=== PATIENT | female | born 1990 | race Caucasian/White ===

== ENCOUNTER 2018-09-27 12:52 | Emergency (ER) | payer SELFPAY ==
--- NOTE | 2018-09-27 14:23 | RAD REPORT ---
EXAM DESCRIPTION: RAD - Chest Pa And Lat (2 Views) - 09/27/2018 2:18 pm CLINICAL HISTORY: Sore throat, fever, chills, cough COMPARISON: None. TECHNIQUE: PA and lateral views of the chest were obtained. FINDINGS: The lungs are clear. Heart size is normal and central vasculature is within normal limit s. No pleural effusion or pneumothorax seen. No acute bony finding noted. No aortic abnormality. IMPRESSION: No acute cardiopulmonary process.
--- NOTE | 2018-09-27 15:00 | EDPHYS ---
Physician Documentation [facility] Name: Quin De La Torre Age: 28 yrs Sex: Female : 1990 Arrival Date: 09/27/2018 Time: 12:54 Bed 11 Private MD: ED Physician Choco Taylor HPI: 09/27 16:01 This 28 yrs old Female presents to ER via Ambulatory with complaints of kb Cough, Fever, Sore Throat. 16:01 The patient presents with sore throat. The patient describes throat pain as constant. kb Onset: The symptoms/episode began/occurred 2 day(s) ago. Severity of symptoms: At their worst the symptoms were moderate, in the emergency department the symptoms are unchanged. Modifying factors: The symptoms are alleviated by nothing, the symptoms are aggravated by swallowing. Associated signs and symptoms: Pertinent positives: chills, cough, fever, Sore throat. The patient has not experienced similar symptoms in the past. The patient has not recently seen a physician. Historical: - Allergies: 13:22 No Known Allergies; tw2 - Home Meds: 13:22 None [Active]; tw2 - PMHx: 13:22 None; tw2 - PSHx: 13:22 None; tw2 - Immunization history:: Adult Immunizations unknown. - Social history:: Smoking status: Patient/guardian denies using tobacco. - Ebola Screening: : Patient denies exposure to infectious person Patient denies travel to an Ebola-affected area in the 21 days before illness onset. ROS: 16:01 Neck: Negative for injury, pain, and swelling, Cardiovascular: Negative for chest pain, kb palpitations, and edema, Abdomen/GI: Negative for abdominal pain, nausea, vomiting, diarrhea, and constipation, Back: Negative for injury and pain, MS/Extremity: Negative for injury and deformity, Skin: Negative for injury, rash, and discoloration, Neuro: Negative for headache, weakness, numbness, tingling, and seizure. 16:01 Constitutional: Positive for chills, fever, malaise. 16:01 ENT: Positive for sore throat. 16:01 Respiratory: Positive for cough, Negative for dyspnea on exertion, hemoptysis, orthopnea, pleurisy, shortness of breath, sputum production, wheezing. Exam: 16:03 Constitutional: This is a well developed, well nourished patient who is awake, alert, kb and in no acute distress. Head/Face: Normocephalic, atraumatic. ENT: Nares patent. No nasal discharge, no septal abnormalities noted. Tympanic membranes are normal and external auditory canals are clear. Oropharynx with no redness, swelling, or masses, exudates, or evidence of obstruction, uvula midline. Mucous membranes moist. Neck: Trachea midline, no thyromegaly or masses palpated, and no cervical lymphadenopathy. Supple, full range of motion without nuchal rigidity, or vertebral point tenderness. No Meningismus. Chest/axilla: Normal chest wall appearance and motion. Nontender with no deformity. No lesions are appreciated. Cardiovascular: Regular rate and rhythm with a normal S1 and S2. No gallops, murmurs, or rubs. Normal PMI, no JVD. No pulse deficits. Respiratory: Lungs have equal breath sounds bilaterally, clear to auscultation and percussion. No rales, rhonchi or wheezes noted. No increased work of breathing, no retractions or nasal flaring. Abdomen/GI: Soft, non-tender, with normal bowel sounds. No distension or tympany. No guarding or rebound. No evidence of tenderness throughout. Skin: Warm, dry with normal turgor. Normal color with no rashes, no lesions, and no evidence of cellulitis. MS/ Extremity: Pulses equal, no cyanosis. Neurovascular intact. Full, normal range of motion. Neuro: Awake and alert, GCS 15, oriented to person, place, time, and situation. Cranial nerves II-XII grossly intact. Motor strength 5/5 in all extremities. Sensory grossly intact. Cerebellar exam normal. Normal gait. Vital Signs: 13:22 BP 123 / 90; Pulse 75; Resp 14; Temp 98.1(TE); Pulse Ox 99% on R/A; Weight 89.81 kg tw2 (M); Height 5 ft. 8 in. (172.72 cm); Pain 0/10; 13:22 Body Mass Index 30.11 (89.81 kg, 172.72 cm) tw2 MDM: 13:25 Patient medically screened. kb 16:03 Data reviewed: vital signs, nurses notes. Data interpreted: Pulse oximetry: on room air kb is 99 %. Interpretation: normal. Counseling: I had a detailed discussion with the patient and/or guardian regarding: the historical points, exam findings, and any diagnostic results supporting the discharge/admit diagnosis, lab results, the need for outpatient follow up, a family practitioner, to return to the emergency department if symptoms worsen or persist or if there are any questions or concerns that arise at home. 09/27 13:23 Order name: Strep; Complete Time: 13:44 tw2 09/27 13:43 Order name: Throat Culture [facility] 09/27 13:54 Order name: Flu; Complete Time: 14:35 kb 09/27 13:54 Order name: Chest Pa And Lat (2 Views) XRAY; Complete Time: 14:35 kb Administered Medications: No medications were administered Disposition: 09/28 09:14 Co-signature as Attending Physician, Choco Taylor MD I agree with the assessment and kdr plan of care. Disposition: 09/27/18 15:00 Discharged to Home. Impression: Acute upper respiratory infection, unspecified. - Condition is Stable. - Discharge Instructions: Upper Respiratory Infection, Adult, [id number], Viral Respiratory Infection, [id number]-[id number]. - Medication Reconciliation Form, Thank You Letter, Antibiotic Education, Prescription Opioid Use, Work release form form. - Follow up: Emergency Department; When: As needed; Reason: Worsening of condition. Follow up: Private Physician; When: 2 - 3 days; Reason: Recheck today's complaints, Continuance of care, Re-evaluation by your physician. Signatures: Dispatcher [employer] [facility] Whitney Stevenson, TURF MANAGER-C TURF MANAGER-Oliverb Choco Taylor MD MD kdr Smirch, Shelby, RN RN ss Wise, Tara, RN RN tw2 Corrections: (The following items were deleted from the chart) 09/27 15:08 15:00 09/27/2018 15:00 Discharged to Home. Impression: Acute upper respiratory ss infection, unspecified. Condition is Stable. Forms are Work release form, Medication Reconciliation Form, Thank You Letter, Antibiotic Education, Prescription Opioid Use. Follow up: Emergency Department; When: As needed; Reason: Worsening of condition. Follow up: Private Physician; When: 2 - 3 days; Reason: Recheck today's complaints, Continuance of care, Re-evaluation by your physician. kb
--- NOTE | 2018-09-27 15:00 | ER ---
Nurse's Notes [facility] Name: Quin De La Torre Age: 28 yrs Sex: Female : 1990 Arrival Date: 09/27/2018 Time: 12:54 Bed 11 Private MD: Diagnosis: Acute upper respiratory infection, unspecified Presentation: 09/27 13:20 Presenting complaint: Patient states: sore throat, fever and chills that began 2-3 days tw2 ago. Transition of care: patient was not received from another setting of care. Onset of symptoms was September 24, 2018. Risk Assessment: Do you want to hurt yourself or someone else? Patient reports no desire to harm self or others. Initial Sepsis Screen: Does the patient meet any 2 criteria? No. Patient's initial sepsis screen is negative. Does the patient have a suspected source of infection? No. Patient's initial sepsis screen is negative. Care prior to arrival: None. 13:20 Method Of Arrival: Ambulatory tw2 13:20 Acuity: DORI 4 tw2 Triage Assessment: 13:23 General: Appears in no apparent distress. Behavior is calm, cooperative, appropriate tw2 for age. Pain: Complains of pain in sore throat. EENT: Throat is reddened. Historical: - Allergies: 13:22 No Known Allergies; tw2 - Home Meds: 13:22 None [Active]; tw2 - PMHx: 13:22 None; tw2 - PSHx: 13:22 None; tw2 - Immunization history:: Adult Immunizations unknown. - Social history:: Smoking status: Patient/guardian denies using tobacco. - Ebola Screening: : Patient denies exposure to infectious person Patient denies travel to an Ebola-affected area in the 21 days before illness onset. Screenin:35 Abuse screen: Denies threats or abuse. Denies injuries from another. Nutritional ss screening: No deficits noted. Tuberculosis screening: Never had TB. Fall Risk None identified. Assessment: 13:34 General: Appears in no apparent distress. comfortable, Behavior is calm, cooperative, ss Reports chills for 2-3 days, fever for 2-3 days, feeling ill for 2-3 days, fatigue for 2-3 days. Pain: Denies pain. Neuro: Level of Consciousness is awake, alert, obeys commands. Cardiovascular: Capillary refill < 3 seconds is brisk in bilateral fingers. Respiratory: Airway is patent Respiratory effort is even, unlabored, Respiratory pattern is regular, symmetrical, Breath sounds are clear bilaterally. GI: No signs and/or symptoms were reported involving the gastrointestinal system. : Denies burning with urination, urinary frequency. EENT: Nares are clear Oral mucosa is moist. Throat is clear is reddened. EENT: Reports pain when swallowing. Derm: Skin is intact, is healthy with good turgor, Skin is dry, Skin is pink, warm \T\ dry. normal. Musculoskeletal: Circulation, motion, and sensation intact. Range of motion: intact in all extremities, Swelling absent. Vital Signs: 13:22 BP 123 / 90; Pulse 75; Resp 14; Temp 98.1(TE); Pulse Ox 99% on R/A; Weight 89.81 kg tw2 (M); Height 5 ft. 8 in. (172.72 cm); Pain 0/10; 13:22 Body Mass Index 30.11 (89.81 kg, 172.72 cm) tw2 ED Course: 12:54 Patient arrived in ED. rg4 13:21 Triage completed. tw2 13:22 Arm band placed on right wrist. tw2 13:25 Whitney [facility]C [facility] kb 13:25 Choco Taylor MD is Attending Physician. kb 13:27 Strep Sent. ss 13:34 Ary Robles, TAJ is Primary Nurse. ss 13:35 Patient has correct armband on for positive identification. Bed in low position. Call ss light in reach. 14:06 Flu Sent. ss 14:16 X-ray completed. Patient tolerated procedure well. sw 14:18 Chest Pa And Lat (2 Views) XRAY In Process Unspecified. EDMS 15:04 No provider procedures requiring assistance completed. Patient did not have IV access ss during this emergency room visit. Administered Medications: No medications were administered Outcome: 15:00 Discharge ordered by . kb 15:04 Discharged to home ambulatory. ss 15:04 Condition: good 15:04 Discharge instructions given to patient, Instructed on discharge instructions, follow up and referral plans. medication usage, Demonstrated understanding of instructions, follow-up care, medications. 15:08 Patient left the ED. ss Signatures: Dispatcher [employer] EDMS Whitney Stevenson FNP-C [employer]-C[employer] Ary Robles, RN RN ss John, Brittny Rodriguez, RN RN tw2 Aye Nicole4
== END 2018-09-27 15:08 | disposition home or self-care (01) ==
LOC: ER 12:52
DX: J06.9 Acute upper respiratory infection, unspecified (principal)
CPT/HCPCS: 71046; 87070; 87081; 87804; 99283

== ENCOUNTER 2021-05-11 19:28 | Emergency (ER) | payer OTHER ==
--- OUTSIDE RECORDS SUMMARY | 2021-05-11 19:32 | XMS REPORT | Continuity of Care Document ---
:1990 Author Organization [facility] t Address [address] [place] [address] [address]. [address]. [address] [place] [address] Care Team Providers Name Role Phone PCP, DOES NOT HAVE A Primary Care Physician Unavailable FISH Attending Clinician Unavailable Aly BETH Attending Clinician DESTINI Attending Clinician Unavailable Doctor Unassigned, Name Attending Clinician Unavailable Erick Alonso MD Attending Clinician 2, Lab Attending Clinician Unavailable ERICK ALONSO Attending Clinician Unavailable GILBERTO Attending Clinician Unavailable Gilberto BETH Attending Clinician Lalit BLAS Attending Clinician Unavailable Roopa PAC, S Attending Clinician Lisa ABBOTT Attending Clinician Unavailable Jaime HOOPER Attending Clinician Unavailable ROOPA, S Admitting Clinician Unavailable Payers Payer Name Policy Type Policy Number Effective Date Expiration Date [id number] 2021 [facility] MEDICAID 00:00:00 Advance Directives Directive Decision Effective Termination Comments Source Date Date Healthcare Agents on N/A [facility] FileNameRelationSt. Charles Hospitalealthcare [facility] Agent Medical RelationshipCommunicationRebanner del e webb medical centerca Branch [facility] Care [phone] (Mobile)Meliza GrahamiblingFirst Alternate [facility] [phone] (Mobile) [email or web address] Problems Condition Condition Condition Status Onset Resolution Last Treating Co mments Source Name Details Category Date Date Treatment Clinician Date History of History of Disease Active 2020-05 U nivers gestationa gestationa 2-08 it y of l l 00:00: [place] hypertensi hypertensi 00 Me dical on on Branch Depression Depression Disease Active 2020-05 U nivers during during 2-08 [place] 00 [facility] trimester trimester Bran ch Nausea and Nausea and Disease Active 2020-05 U nivers vomiting vomiting -04 ity of during during 00:00: [place] 00 [facility] Branch Elevated Elevated Disease Active 2020-05 Unive rs BP without BP without 04 it y of diagnosis diagnosis 00:[place] of of 00 Medical hypertensi hypertensi Br anch on on Other Other Disease Active Univers general general 5-06 ity of counseling [place] advice and advice 00 Me dical for for Branch contracept contracept marty marty management management UTI UTI Disease Active Univers symptoms symptoms 5-06 ity of 00:00: [place] 00 Medical Branch Pyelonephr Pyelonephr Disease Active 2018-05 U nivers itis itis -12 ity of 00:00: [place] 00 Medical Branch Heart Heart Disease Active 2017-05 Overview: Univer s murmur murmur 05-14 Formattin ity of 00:00: g of this [place] 00 note Medical might be Branch different from the original. Reports history has a PCP she currently sees History of History of Disease Active 2017-05 Overview : Univers 05-14 Formattin ity o f delivery delivery 00:00: g of this Alessandro as 00 note Medical might be Branch different from the original. ROR requested , patient had SROM at 37 3/7 in 2011, not considere d see scanned records Multiparit Multiparit Disease Active 2017-05 U nivers y y 07 ity of 00:00: [place] 00 Medical Branch Supervisio Supervisio Disease Active 2017-05 U nivers n of n of 1-07 ity of high-risk high-risk 00:[place] [facility] Over Over Disease Active 2017-05 Univers weight weight 1-07 ity of 00:00: [place] 00 Medical Branch Allergies, Adverse Reactions, Alerts Allergy Allergy Status Severity Reaction(s) Onset Inactive Treating Comm ents Source Name Type Date Date Clinician LATEX DRUG Active Rash 2020-05 Univers INGREDI 1-04 ity of 00:00: [place] 00 Medical Branch Latex Propensi Active Rash 2020-05 Univers ty to 1-04 ity of adverse 00:00: [place] reaction 00 Medical Branch ADHESIVE Drug Active Rash 2014-05 Univers Class 2-02 ity of 00:00: [place] 00 Medical Branch Adhesive Propensi Active Rash 2014-05 Univer s ty to 2-02 ity of adverse 00:00: [place] reaction 00 [facility] Social History Social Habit Start Date Stop Date Quantity Comments Source ASSERTION 2021-01-06 University 00:00:00 [facility] Exposure to Not sure [facility] SARS-CoV-2 [facility] (event) [place] Alcohol intake 2021-04-14 2021-04-14 Current University 00:00:00 00:00:00 non-drinker of [facility] alcohol [place] (finding) Tobacco use and 2018-03-14 2018-03-14 Never used Universit y of exposure 00:00:00 00:00:00 [facility] Sex Assigned At [birth year] Universit y of 00:00:00 00:00:00 [facility] Smoking Status Start Date Stop Date Source Never smoker [facility] Medications Ordered Filled Start Stop Current Ordering Indication Dosage Frequency Signature Comments Components Source Medication Medication Date Date Medication? Clinician (SIG) Name Name sertraline 2020-05 Take by Un steph HCl (ZOLOFT 06-15 mouth. ity o f ORAL) 11:09: 00:00 [place] 55 :00 Medical Branch 2020-05 Yes [id number] 1{tbl} Take 1 U nivers vit w/iron 2-08 tablet by ity of fumarate 00:00: mouth [place] and FA 00 daily. Medical ( Branch VITAMIN WITH MINERALS) tablet 2020-05 Yes [id number] 1{tbl} Take 1 U nivers vit w/iron 2-08 tablet by ity of fumarate 00:00: mouth [place] and FA 00 daily. Medical ( Branch VITAMIN WITH MINERALS) tablet 2020-05 Yes [id number] 1{tbl} Take 1 U nivers vit w/iron 2-08 tablet by ity of fumarate 00:00: mouth [place] and FA 00 daily. Medical ( Branch VITAMIN WITH MINERALS) tablet sertraline 2020-05 Yes Take by Uni vers HCl (ZOLOFT 1-04 mouth. ity of ORAL) 11:09: [address] Branch sertraline 2020-05 Yes Take by Uni vers HCl (ZOLOFT 1-04 mouth. ity of ORAL) 11:09: [address] Branch sertraline 2020-05 Yes Take by Uni vers HCl (ZOLOFT 1-04 mouth. ity of ORAL) 11:09: [address] sertraline 2020-05 Yes Take by Uni vers HCl (ZOLOFT 1-04 mouth. ity of ORAL) 11:09: [address] sertraline 2020-05 Yes Take by Uni vers HCl (ZOLOFT 1-04 mouth. ity of ORAL) 11:09: [address] sertraline 2020-05 Yes Take by Uni vers HCl (ZOLOFT 1-04 mouth. ity of ORAL) 11:09: [address] sertraline 2020-05 Yes Take by Uni vers HCl (ZOLOFT 1-04 mouth. ity of ORAL) 11:09: [address] PNV 2020-05 Yes [id number] Take 1 Univers 102-iron-fo 1-04 TAB-CAP/M2 it y of late-dha 00:00: by mouth Eyad (VITAFOL FE 00 daily. Medica l PLUS) 90 mg Branch iron- 1 mg-200 mg Cap PNV 2020-05 Yes [id number] Take 1 Univers 102-iron-fo 1-04 TAB-CAP/M2 it y of late-dha 00:00: by mouth Eyad (VITAFOL FE 00 daily. Medica l PLUS) 90 mg Branch iron- 1 mg-200 mg Cap PNV 2020-05 Yes [id number] Take 1 Univers 102-iron-fo 1-04 TAB-CAP/M2 it y of late-dha 00:00: by mouth Eyad (VITAFOL FE 00 daily. Medica l PLUS) 90 mg Branch iron- 1 mg-200 mg Cap PNV 2020-05 Yes [id number] Take 1 Univers 102-iron-fo 1-04 TAB-CAP/M2 it y of late-dha 00:00: by mouth Eyad (VITAFOL FE 00 daily. Medica l PLUS) 90 mg Branch iron- 1 mg-200 mg Cap PNV 2020-05 Yes [id number] Take 1 Univers 102-iron-fo 1-04 TAB-CAP/M2 it y of late-dha 00:00: by mouth Eyad (VITAFOL FE 00 daily. Medica l PLUS) 90 mg Branch iron- 1 mg-200 mg Cap PNV 2020-05 Yes [id number] Take 1 Univers 102-iron-fo 1-04 TAB-CAP/M2 it y of late-dha 00:00: by mouth Eyad (VITAFOL FE 00 daily. Medica l PLUS) 90 mg Branch iron- 1 mg-200 mg Cap PNV 2020-05 Yes [id number] Take 1 Univers 102-iron-fo 1-04 TAB-CAP/M2 it y of late-dha 00:00: by mouth Eyad (VITAFOL FE 00 daily. Medica l PLUS) 90 mg Branch iron- 1 mg-200 mg Cap PNV 2020-05- No [id number] Take 1 Univer s 102-iron-fo 1-04 12-08 TAB-CAP/M2 i ty of late-dha 00:00: 00:00 [place] (VITAFOL FE 00 :00 daily. Medica l PLUS) 90 mg Branch iron- 1 mg-200 mg Cap metoclopram 2020-05- No 10mg 10 mg, Uni vers andrew HCl 0- 10-21 Slow IV ity of (REGLAN) 18:30: 18:05 Push, [place] injection 00 :00 ONCE, 1 Medical 10 mg dose, On Branch Skylar 02/25/21 at 1330, SHERRY NaCl 0.9% 2020-05- No 1000mL at 999 Uni vers (NS) bolus 0-21 10-21 mL/hr, ity of infusion 18:15: 18:05 1,000 mL, Alessandro as 1,000 mL 00 :00 IV Medical Infusion, Branch ONCE, 1 dose, On Skylar 02/25/21 at 1315, STAT NaCl 0.9% 2020-05 No 1000mL at 999 Uni vers (NS) bolus 0-08 10-09 mL/hr, ity of infusion 23:30: 00:00 1,000 mL, Aless[place] as 1,000 mL 00 :00 IV Medical Infusion, Branch ONCE, 1 dose, On 02/12/21 at 1830, STAT acetaminoph 2020-05 No 1000mg 1,000 mg, Univers en 0-08 10-08 Oral, ity of (TYLENOL) 23:30: 22:56 ONCE, 1 [place] tablet 00 :00 dose, On Medical 1,000 mg Fri Branch 02/12/21 at 1830, SHERRY ondansetron 2020-05 No 4mg 4 mg, Slow Univers (ZOFRAN 0-08 10-08 IV Push, ity of (PF)) 23:30: 22:56 ONCE, 1 [place] injection 4 00 :00 dose, On Medi beatriz mg Fri Branch 02/12/21 at 1830, SHERRY ondansetron 2020-05 Yes [id number] 4mg Take 1 Univers (ZOFRAN 0-08 tablet by ity of ODT) 4 mg 00:00: mouth [place] disintegrat 00 every 8 Medic al ing tablet (eight) Branch hours as needed for Nausea and Vomiting (N/V). ondansetron 2020-05 Yes [id number] 4mg Take 1 Univers (ZOFRAN 0-08 tablet by ity of ODT) 4 mg 00:00: mouth [place] disintegrat 00 every 8 Medic al ing tablet (eight) Branch hours as needed for Nausea and Vomiting (N/V). ondansetron 2020-05 Yes [id number] 4mg Take 1 Univers (ZOFRAN 0-08 tablet by ity of ODT) 4 mg 00:00: mouth [place] disintegrat 00 every 8 Medic al ing tablet (eight) Branch hours as needed for Nausea and Vomiting (N/V). ondansetron 2020-05 Yes [id number] 4mg Take 1 Univers (ZOFRAN 0-08 tablet by ity of ODT) 4 mg 00:00: mouth [place] disintegrat 00 every 8 Medic al ing tablet (eight) Branch hours as needed for Nausea and Vomiting (N/V). ondansetron 2020-05 Yes [id number] 4mg Take 1 Univers (ZOFRAN 0-08 tablet by ity of ODT) 4 mg 00:00: mouth [place] disintegrat 00 every 8 Medic al ing tablet (eight) Branch hours as needed for Nausea and Vomiting (N/V). ondansetron 2020-05 Yes [id number] 4mg Take 1 Univers (ZOFRAN 0-08 tablet by ity of ODT) 4 mg 00:00: mouth [place] disintegrat 00 every 8 Medic al ing tablet (eight) Branch hours as needed for Nausea and Vomiting (N/V). ondansetron 2020-05 Yes [id number] 4mg Take 1 Univers (ZOFRAN 0-08 tablet by ity of ODT) 4 mg 00:00: mouth [place] disintegrat 00 every 8 Medic al ing tablet (eight) Branch hours as needed for Nausea and Vomiting (N/V). ondansetron 2020-05 Yes [id number] 4mg Take 1 Univers (ZOFRAN 0-08 tablet by ity of ODT) 4 mg 00:00: mouth [place] disintegrat 00 every 8 Medic al ing tablet (eight) Branch hours as needed for Nausea and Vomiting (N/V). ondansetron 2020-05 Yes [id number] 4mg Take 1 Univers (ZOFRAN 0-08 tablet by ity of ODT) 4 mg 00:00: mouth [place] disintegrat 00 every 8 Medic al ing tablet (eight) Branch hours as needed for Nausea and Vomiting (N/V). ondansetron 2020-05 Yes [id number] 4mg Take 1 Univers (ZOFRAN 0-08 tablet by ity of ODT) 4 mg 00:00: mouth [place] disintegrat 00 every 8 Medic al ing tablet (eight) Branch hours as needed for Nausea and Vomiting (N/V). ondansetron 2020-05 Yes [id number] 4mg Take 1 Univers (ZOFRAN 0-08 tablet by ity of ODT) 4 mg 00:00: mouth [place] disintegrat 00 every 8 Medic al ing tablet (eight) Branch hours as needed for Nausea and Vomiting (N/V). ondansetron 2020-05 Yes [id number] 4mg Take 1 Univers (ZOFRAN 0-08 tablet by ity of ODT) 4 mg 00:00: mouth [place] disintegrat 00 every 8 Medic al ing tablet (eight) Branch hours as needed for Nausea and Vomiting (N/V). ondansetron 2020-05 Yes [id number] 4mg Take 1 Univers (ZOFRAN 0-08 tablet by ity of ODT) 4 mg 00:00: mouth [place] disintegrat 00 every 8 Medic al ing tablet (eight) Branch hours as needed for Nausea and Vomiting (N/V). ondansetron 2020-05 Yes [id number] 4mg Take 1 Univers (ZOFRAN 0-08 tablet by ity of ODT) 4 mg 00:00: mouth [place] disintegrat 00 every 8 Medic al ing tablet (eight) Branch hours as needed for Nausea and Vomiting (N/V). triamcinolo 2020-0 Yes [id number] Apply to Univers ne 5-15 area(s) 2 ity of acetonide 00:00: (two) [place] 0.1 % cream 00 times Medical daily. Branch triamcinolo 2020-0 Yes [id number] Apply to Univers ne 5-15 area(s) 2 ity of acetonide 00:00: (two) [place] 0.1 % cream 00 times Medical daily. Branch triamcinolo 2020-0 Yes [id number] Apply to Univers ne 5-15 area(s) 2 ity of acetonide 00:00: (two) [place] 0.1 % cream 00 times Medical daily. Branch triamcinolo 2020-0 Yes [id number] Apply to Univers ne 5-15 area(s) 2 ity of acetonide 00:00: (two) [place] 0.1 % cream 00 times Medical daily. Branch triamcinolo 2020-0 Yes [id number] Apply to Univers ne 5-15 area(s) 2 ity of acetonide 00:00: (two) [place] 0.1 % cream 00 times Medical daily. Branch triamcinolo 2020-0 Yes [id number] Apply to Univers ne 5-15 area(s) 2 ity of acetonide 00:00: (two) [place] 0.1 % cream 00 times Medical daily. Branch triamcinolo 2020-0 Yes [id number] Apply to Univers ne 5-15 area(s) 2 ity of acetonide 00:00: (two) [place] 0.1 % cream 00 times Medical daily. Branch triamcinolo 2020-0 Yes [id number] Apply to Univers ne 5-15 area(s) 2 ity of acetonide 00:00: (two) [place] 0.1 % cream 00 times Medical daily. Branch triamcinolo 2020-0 Yes [id number] Apply to Univers ne 5-15 area(s) 2 ity of acetonide 00:00: (two) [place] 0.1 % cream 00 times Medical daily. Branch triamcinolo 2020-0 Yes [id number] Apply to Univers ne 5-15 area(s) 2 ity of acetonide 00:00: (two) [place] 0.1 % cream 00 times Medical daily. Branch triamcinolo 2020-0 Yes [id number] Apply to Univers ne 5-15 area(s) 2 ity of acetonide 00:00: (two) [place] 0.1 % cream 00 times Medical daily. Branch triamcinolo 2020-0 2020- No [id number] Apply to Univers ne 5-15 12-08 area(s) 2 ity of acetonide 00:00: 00:00 (two) [place] 0.1 % cream 00 :00 times Medical daily. Branch Immunizations Ordered Filled Immunization Date Status Comments [facility] e Immunization Name Name Influenza Virus 2021-03-11 Completed Universit y of Vaccine Quad IM, 00:00:00 [place] Me dical Preserv and ABX Branch Free 6 MO-64 YRS Influenza Virus 2021-03-11 Completed Universit y of Vaccine [facility] IM, 00:00:00 [place] Me dical Preserv and ABX Branch Free 6 MO-64 YRS Influenza Virus 2021-03-11 Completed Universit y of Vaccine Quad IM, 00:00:00 [place] Me dical Preserv and ABX Branch Free 6 MO-64 YRS Influenza Virus 2021-03-11 Completed Universit y of Vaccine [facility] IM, 00:00:00 [place] Me dical Preserv and ABX Branch Free 6 MO-64 YRS Influenza Virus 2021-03-11 Completed Universit y of Vaccine Quad IM, 00:00:00 [place] Me dical Preserv and ABX Branch Free 6 MO-64 YRS Influenza Virus 2021-03-11 Completed Universit y of Vaccine Quad IM, 00:00:00 [place] Me dical Preserv and ABX Branch Free 6 MO-64 YRS Influenza Virus 2021-03-11 Completed Universit y of Vaccine Quad IM, 00:00:00 [place] Me dical Preserv and ABX Branch Free 6 MO-64 YRS Influenza Virus 2021-03-11 Completed Universit y of Vaccine Quad IM, 00:00:00 [place] Me dical Preserv and ABX Branch Free 6 MO-64 YRS Influenza Virus 2021-03-11 Completed Universit y of Vaccine Quad IM, 00:00:00 [place] Me dical Preserv and ABX Branch Free 6 MO-64 YRS Influenza Virus 2021-03-11 Completed Universit y of Vaccine Quad IM, 00:00:00 [facility] dical Preserv and ABX Branch Free 6 MO-64 YRS SARS-COV-2 COVID-19 2020-07-22 Completed Unive rsity of MODERNA VACCINE 00:00:00 [facility] Branch SARS-COV-2 COVID-19 2020-07-22 Completed Unive rsity of MODERNA VACCINE 00:00:00 [facility] Branch SARS-COV-2 COVID-19 2020-07-22 Completed Unive rsity of MODERNA VACCINE 00:00:00 [facility] Branch SARS-COV-2 COVID-19 2020-07-22 Completed Unive rsity of MODERNA VACCINE 00:00:00 [facility] Branch SARS-COV-2 COVID-19 2020-07-22 Completed Unive rsity of MODERNA VACCINE 00:00:00 [facility] Branch SARS-COV-2 COVID-19 2020-07-22 Completed Unive rsity of MODERNA VACCINE 00:00:00 [facility] Branch SARS-COV-2 COVID-19 2020-07-22 Completed Unive rsity of MODERNA VACCINE 00:00:00 [facility] Branch SARS-COV-2 COVID-19 2020-07-22 Completed Unive rsity of MODERNA VACCINE 00:00:00 [facility] Branch SARS-COV-2 COVID-19 2020-07-22 Completed Unive rsity of MODERNA VACCINE 00:00:00 [facility] Branch SARS-COV-2 COVID-19 2020-07-22 Completed Unive rsity of MODERNA VACCINE 00:00:00 [facility] [place] SARS-COV-2 COVID-19 2020-07-01 Completed Unive rsity of MODERNA VACCINE 00:00:00 [place] Med ical Branch SARS-COV-2 COVID-19 2020-07-01 Completed Unive rsity of MODERNA VACCINE 00:00:00 [facility] SARS-COV-2 COVID-19 2020-07-01 Completed Unive rsity of MODERNA VACCINE 00:00:00 [facility] SARS-COV-2 COVID-19 2020-07-01 Completed Unive rsity of MODERNA VACCINE 00:00:00 [facility] SARS-COV-2 COVID-19 2020-07-01 Completed Unive rsity of MODERNA VACCINE 00:00:00 [facility] SARS-COV-2 COVID-19 2020-07-01 Completed Unive rsity of MODERNA VACCINE 00:00:00 [facility] SARS-COV-2 COVID-19 2020-07-01 Completed Unive rsity of MODERNA VACCINE 00:00:00 [facility] SARS-COV-2 COVID-19 2020-07-01 Completed Unive rsity of MODERNA VACCINE 00:00:00 [facility] SARS-COV-2 COVID-19 2020-07-01 Completed Unive rsity of MODERNA VACCINE 00:00:00 [facility] SARS-COV-2 COVID-19 2020-07-01 Completed Unive rsity of MODERNA VACCINE 00:00:00 [facility] Vital Signs Vital Name Observation Time Observation Value Comments Source Systolic blood 2021-04-12 21:05:00 114 mm[Hg] Univer sity of pressure [facility] Diastolic blood 2021-04-12 21:05:00 77 mm[Hg] Unive rsity of pressure [facility] Heart rate 2021-04-12 21:05:00 77 /min [facility] Body temperature 2021-04-12 21:05:00 36.78 Katty Univ ersity [facility] Respiratory rate 2021-04-12 21:05:00 18 /min Univ ersity [facility] Body height 2021-04-12 21:05:00 172.7 cm [facility] Body weight 2021-04-12 21:05:00 84.142 kg [facility] BMI 2021-04-12 21:05:00 28.21 kg/m2 [facility] ty [facility] [place] [facility] Systolic blood 2021-03-11 16:21:00 117 mm[Hg] Univer sity of pressure [place] [facility] Diastolic blood 2021-03-11 16:21:00 78 mm[Hg] Unive rsity of pressure [place] [facility] Heart rate 2021-03-11 16:05:00 53 /min [facility] [place] [facility] Body temperature 2021-03-11 16:05:00 36.78 Katty Univ ersity of [place] [facility] Respiratory rate 2021-03-11 16:05:00 18 /min Univ ersity of [place] [facility] Body height 2021-03-11 16:05:00 177.8 cm [facility]i ty [facility] [place] [facility] Body weight 2021-03-11 16:05:00 84.369 kg [facility] [place] [facility] BMI 2021-03-11 16:05:00 26.69 kg/m2 [facility] [place] [facility] Systolic blood 2021-02-25 17:07:00 126 mm[Hg] Univer sity of pressure [place] [facility] Diastolic blood 2021-02-25 17:07:00 80 mm[Hg] Unive rsity of pressure [place] [facility] Heart rate 2021-02-25 17:07:00 74 /min [facility] [place] [facility] Body temperature 2021-02-25 17:07:00 36.72 Katty Univ ersity of [place] [facility] Respiratory rate 2021-02-25 17:07:00 18 /min Univ ersity of [place] [facility] Body weight 2021-02-25 17:07:00 81.647 kg [facility]i ty [facility] [place] [facility] BMI 2021-02-25 17:07:00 25.83 kg/m2 [facility] [place] [facility] Oxygen saturation in 2021-02-25 17:07:00 100 /min University Arterial blood by [facility] Pulse oximetry Branch Systolic blood 2021-02-13 01:33:00 107 mm[Hg] Univer sity of pressure [place] [facility] Diastolic blood 2021-02-13 01:33:00 62 mm[Hg] Unive rsity of pressure [place] [facility] Heart rate 2021-02-13 01:33:00 52 /min [facility]i ty [facility] [place] [facility] Respiratory rate 2021-02-13 01:33:00 18 /min [facility] Oxygen saturation in 2021-02-13 01:33:00 99 /min [facility] Arterial blood by [facility] Pulse oximetry [place] Body temperature 2021-02-12 21:47:[address] [facility] Body weight 2021-02-12 21:47:00 85.73 kg [facility] BMI 2021-02-12 21:47:00 27.12 kg/m2 [facility] Procedures Procedure Date / Time Performing Clinician Source Performed POCT URINALYSIS W/O 2021-04-12 21:13:00 Ryan Lu [facility] MEDICAL 2021-04-08 06:01:00 Doctor Unassigned, No [facility] RELEASE/CLEARANCE FORMS [facility] DME/SUPPLY JUSTIFICATION 2021-03-26 06:01:00 Doctor Unassigned, No [facility] FLU VACC ([id number]), 2021-03-11 17:14:26 Paul Alonso [facility] 2-64 YRS, .5ML, IM, [facility] (FLUCELVAX) ASSIGNMENT OF BENEFITS 2021-03-11 14:50:44 Doctor Unassigned, No [facility] POCT URINALYSIS W/O 2021-03-11 00:00:00 Paul Alonso [facility] POCT TEST 2021-02-25 17:18:00 Corrine Macias [facility] LIPASE 2021-02-25 17:12:00 Gilberto Corrine [facility] COMP. METABOLIC PANEL 2021-02-25 17:12:00 Corrine Macias [facility] ([id number]) [facility] CBC WITH DIFF 2021-02-25 17:12:00 Gilberto Corrine [facility] URINALYSIS 2021-02-25 17:12:00 Gilberto Corrine [facility] CONSENT/REFUSAL FOR 2021-02-25 17:02:24 Doctor Unassigned, No [facility] DIAGNOSIS AND TREATMENT [facility] US FIRST 2021-02-13 00:30:00 Patricio Blas [facility] TRIMESTER LESS THAN 14 Medical B ranch WEEKS WITH TRANSVAGINAL CBC WITH DIFF 2021-02-12 22:14:00 Patricio Blas [facility] BASIC METABOLIC PANEL 2021-02-12 22:13:00 Patricio Blas [facility] (NA, K, CL, CO2, Medical Branch GLUCOSE, BUN, CREATININE, CA) TOTAL BETA HCG ASSAY 2021-02-12 22:13:00 Patricio Blas [facility] URINALYSIS 2021-02-12 22:13:00 Patricio Blas [facility] CONSENT/REFUSAL FOR 2021-02-12 21:39:57 Doctor Unassigned, No Un [facility] DIAGNOSIS AND TREATMENT Name [facility] Encounters Start End Encounter Admission Attending Care Care Encounter Source Date/Time Date/Time Type Type Clinicians Facility Department ID 2021-05-18 2021-05-18 Outpatient R ALY RYAN [facility] [id number] Univers 11:15:00 11:15:00 [id number] ity [facility] 2021-05-13 2021-05-13 Outpatient R [facility] [id number] Univers 20:45:00 20:45:00 [id number] ity [facility] 2021-05-12 2021-05-12 Outpatient R [facility] [id number] Univers 19:30:00 19:30:00 [id number] ity [facility] 2021-05-12 2021-05-12 Outpatient [address] [facility] [id number] Univers 11:00:00 11:00:00 ity [facility] 2021-05-11 2021-05-11 Telephone Kvaeh Lun [facility] [id number] Univers 00:00:00 00:00:00 [place] [id number] it y of [id number] [address] 2021-05-10 2021-05-10 Outpatient R ALY RYAN [facility] [id number] Univers 11:15:00 11:15:00 [id number] ity [facility] 2021-05-10 2021-05-10 Outpatient R RYAN LU [facility] [id number] Univers 11:15:00 11:15:00 ity [facility] 2021-04-15 2021-04-15 Telephone Ryan Lu [facility] KAYA [id number] Univers 00:00:00 00:00:00 [place] 350.1.13.10 it y [place] [id number] [address] 2021-04-12 2021-04-12 Outpatient R RYAN LU [facility] [id number] Univers 14:30:00 15:46:31 ity [facility] 2021-04-12 2021-04-12 Initial Ryan Lu [facility] KAYA 1.2.840.114 [id number] Univers 14:08:27 15:46:31 [place] 350.1.13.10 i ty of [place] [phone] [address] 2021-04-12 2021-04-12 Outpatient R YRAN LU [facility] [id number] Univers 14:30:00 14:30:00 [id number] ity [facility] 2021-04-08 2021-04-08 Outpatient R DESTINI [facility] [id number] 2Q-20 Univers 16:30:00 16:30:00 BEBE [id number] ity [facility] 2021-04-08 2021-04-08 Orders Doctor SARANYA 1.2.840.114 [id number] Univers 00:00:00 00:00:00 Only Unassigned, SHERRON 350.1.13.10 ity of [place] [facility] 4.2.7.2.686 Alessandro as [phone] [address] 2021-04-05 2021-04-05 Telephone Paul Alonso [facility] 1.2.840.114 [id number] Univers 00:00:00 00:00:00 Erick SAWANT 350.1.13.10 i ty of [place] [phone] Fl dical NAL 134 [facility] 2021-03-26 2021-03-26 Case Paul Alonso [facility] [id number] Univers 00:00:00 00:00:00 Management Erick SAWANT 350.1.13.10 ity of [facility] 4.[place].2.[place] [phone] Fl dical NAL 134 [facility] 2021-03-26 2021-03-26 Orders Doctor SARANYA 1.2.840.114 [id number] Univers 00:00:00 00:00:00 Only Unassigned, SHERRON 350.1.13.10 ity of [place] [facility] 4.2.7.2.686 Alessandro as [phone] [address] 2021-03-22 2021-03-22 Telephone Karon Alonsoen [facility] 1.2.840.114 [id number] Univers 00:00:00 00:00:00 Erick SAWANT 350.1.13.10 i ty of [place] [phone] Fl dical NAL 134 [facility] 2021-03-16 2021-03-16 Chaplain 2, Adc Lab [facility] 1.2.840.114 [id number] Univers 12:56:40 13:37:38 Visit Paul Alonso Erick SAWANT 350.1.13.10 it[place] of [place] [phone] Fl dical NAL 353 [facility] 2021-03-16 2021-03-16 Outpatient R [facility] [id number] Univers 13:00:00 13:00:00 [id number] ity [facility] 2021-03-16 2021-03-16 Outpatient R ALONSO PAUL [facility] [id number] Univers 13:00:00 13:00:00 ity of [facility] 2021-03-12 2021-03-12 Outpatient R [facility] [id number] -[id number] Univers 09:15:00 09:15:00 [id number] ity [facility] 2021-03-12 2021-03-12 Outpatient R [facility] [id number] Univers 09:15:00 09:15:00 ity of [facility] 2021-03-11 2021-03-11 Outpatient R PAUL ALONSO [facility] [id number] Univers 10:00:00 12:02:12 ity of [facility] 2021-03-11 2021-03-11 [facility] [id number] Univers 09:52:44 12:02:12 Hilario SAWANT 350.1.13.10 ity of [place]2.[place] [facility] [phone] Fl dical [address] 2021-03-11 2021-03-11 Outpatient R PAUL ALONSO [facility] [id number] 2Q-20 Univers 10:00:00 10:00:00 [id number] ity of [facility] 2021-03-11 2021-03-11 Orders Doctor SARANYA 1.2.840.114 [id number] Univers 00:00:00 00:00:00 Only Unassigned, SHERRON 350.1.13.10 ity of [place] [facility] 4.2.7.2.686 Aless[place] as [phone] [facility] [address] 2021-02-25 2021-02-25 Outpatient R GILBERTO [facility] [id number] -[id number] Univers 14:10:00 14:10:00 CORRINE [id number] ity of [facility] 2021-02-25 2021-02-25 [facility] [id number] Univers 12:07:00 13:06:00 Corrine Sawant 350.1.13.10 i ty [place] [phone] [facility] [address] 2021-02-25 2021-02-25 Emergency [facility] [id number] Univers 12:07:00 13:06:00 CORRINE ity [facility] 2021-02-25 2021-02-25 Orders Doctor BEAVER 1.2.840.114 [id number] Univers 00:00:00 00:00:00 Only Unassigned, SHERRON 350.1.13.10 ity of [facility] 4.2.7.2.686 [facility] [phone] Medi beatriz [address] 2021-02-12 2021-02-12 Emergency X ROOPA [facility] ERT [id number] Univers 16:49:00 20:48:00 PATRICIO ity [facility] 2021-02-12 2021-02-12 [facility] [id number] [id number] Univers 16:49:00 20:48:00 Patricio Sawant 350.1.13.10 i ty [facility] 4.2.7.2.686 [facility] [phone] [facility] [address] 2020-08-06 2020-08-[address] [facility] [id number] Univers 11:45:00 11:45:00 ity [facility] 2020-04-06 2020-04-06 Outpatient R [facility] [id number] Univers 14:45:00 14:45:00 [id number] ity [facility] 2020-04-01 2020-04-01 Outpatient R [facility] [id number] Univers 15:15:00 15:15:00 [id number] [facility] 2019-10-02 2019-10-02 Outpatient R AKINSIPE, [facility] [id number] Univers 10:00:00 10:00:00 YON [id number] rodneyy o f [facility] 2019-10-02 2019-10-02 Outpatient R AKINSIPE, [facility] [id number] Univers 10:00:00 10:00:00 YON leblanc o f [facility] 2019-09-20 2019-09-20 Outpatient R HOOPER, [facility] [id number] Univers 16:30:00 16:30:00 DIMAS [id number] ity [facility] 2019-09-20 2019-09-20 Outpatient R RUFUS, [facility] [id number] Univers 16:30:00 16:30:00 DIMAS [facility] 2019-09-11 2019-09-11 Outpatient AKINSIPE, [facility] [id number]-20 Univers 10:45:00 10:45:00 YON rodneyy o f [facility] 2019-09-11 2019-09-11 Outpatient R MILENA, [facility] [id number] Univers 10:45:00 10:45:00 YON rodneyy o f [facility] 2019-09-03 2019-09-[address] [facility] [id number] Univers 10:30:00 10:30:00 [id number] [facility] 2019-08-11 2019-08-11 Outpatient R [facility] [id number] Univers 16:40:00 16:40:00 [facility] 2019-08-11 2019-08-11 Outpatient R DESTINI, [facility] [id number] Univers 16:40:00 16:40:00 BEBE [facility] Results Test Description Test Time Test Comments Results Result Comments Source POCT URINALYSIS W/O SPECIFIC GRAVITY 2021-04-12 21:13:00 Test Item Value Reference Range Interpretation Comme nts POCT PH U (test code = 3254) n/a 5-8 POCT U LEUK EST (test code = 3263) n/a Negative - Negative POCT U NIT (test code = 3262) n/a Negative - Negative POCT U PROT (test code = 3259) Negative Negative - Negative POCT U GLU (test code = 3256) Negative Negative - Negative POCT U KETONE (test code = 3258) n/a Negative - Negative POCT U BLD (test code = 3257) n/a Negative - Negative Lab Interpretation (test code = 40646-9) Normal [facility] W/O SPECIFIC [id number] 16:33:00 Test Item Value Reference Range Interpretation Comments POCT PH U (test code = 3254) N/A 5-8 POCT U LEUK EST (test code = N/A Negative - Negative 3263) POCT U NIT (test code = 3262) N/A Negative - Negative POCT U PROT (test code = 3259) Negative Negative - Negative POCT U GLU (test code = 3256) Negative Negative - Negative POCT U KETONE (test code = 3258) N/A Negative - Negative POCT U BLD (test code = 3257) N/A Negative - Negative [facility] Metabolic [id number] 17:36:22 Test Item Value Reference Range Interpretation Comments NA (test code = 135 mmol/L 135-145 3001354327) K (test code = 4.2 mmol/L 3.5-5.0 9672789400) CL (test code = 100 mmol/L 98-108 8360657485) CO2 TOTAL (test code = 24 mmol/L 23-31 4415014349) AGAP (test code = 2-16 4516644749) BUN (test code = 11 mg/dL 7-23 3512729745) GLUCOSE (test code = 99 mg/dL 70-110 7363736361) CREATININE (test code = 0.70 mg/dL 0.50-1.04 0047341520) TOTAL BILI (test code = 1.2 mg/dL 0.1-1.1 H 6423131646) CALCIUM (test code = 10.5 mg/dL 8.6-10.6 7445275595) T PROTEIN (test code = 8.5 g/dL 6.3-8.2 H 3190770902) ALBUMIN (test code = 4.9 g/dL 3.5-5.0 6282302134) ALK PHOS (test code = 57 U/L 34-122 9323791920) ALTv (test code = 57 U/L 5-35 H 1742-6) AST(SGOT) (test code = 46 U/L 13-40 H 4503376827) eGFR (test code = mL/min/1.73m2 8540857287) NAMAN (test code = NAMAN) Association of Glomerular Filtration Rate (GFR) and Staging of Kidney Disease* + --+ --+ ------+| GFR (mL/min/1.73 m2) ?| With Kidney Damage ?| ?Without Kidney Damage+ --------+ --------+ +| ?>90 ?| ?Stage one ?| ? Normal ?+ ---+ ---+ -------+| ?60-89 ?| ?Stage two ?| ? Decreased GFR ? + --+ --+ ------+| ?30-59 ?| ?Stage three ?| ? Stage three ? + --+ --+ ------+| ?15-29 ?| ?Stage four ? | ? Stage four ?+ ---+ ---+ -------+| ?<15 (or dialysis) ? ?| ?Stage five ? | ? Stage five ?+ ---+ ---+ -------+ *Each stage assumes the associated GFR level has been in effect for at least three months. ?Stages 1 to 5, with or without kidney disease, indicate chronic kidney disease. Notes: Determination of stages one and two (with eGFR >59mL/min/1.73 m2) requires estimation of kidney damage for at least three months as defined by structural or functional abnormalities of the kidney, manifested by either:Pathological abnormalities or Markers of kidney damage (including abnormalities in the composition of the blood or urine or abnormalities in imaging tests). Lab Interpretation Abnormal (test code = 86377-6) [facility], [id number] 17:36:22 Test Item Value Reference Range Interpretation Comments LIPASE (test code = 3983160820) 59 U/L 0-220 Lab Interpretation (test code = Normal 31978-9) [facility] with [id number] 17:20:59 Test Item Value Reference Range Interpretation Comments WBC (test code = See_Comment [Automated 0490-2) message] The sy stem which generated this result transmitted reference range : 4.30 - 11.10 10*3/?L. The reference range was not used to interpret this result as normal/abnormal . RBC (test code = See_Comment [Automated 333-8) message] The sy stem which generated this result transmitted reference range : 3.93 - 5.25 10*6/?L. The reference range was not used to interpret this result as normal/abnormal . HGB (test code = 15.6 g/dL 11.6-15.0 H 718-7) HCT (test code = 45.1 % 35.7-45.2 4544-3) MCV (test code = 90.0 fL 80.6-95.5 787-2) MCH (test code = 31.1 pg 25.9-32.8 785-6) MCHC (test code = 34.6 g/dL 31.6-35.1 786-4) RDW-SD (test code = 40.5 fL 39.0-49.9 85371-1) RDW-CV (test code = 12.4 % 12.0-15.5 788-0) PLT (test code = See_Comment [Automated 777-3) message] The sy stem which generated this result transmitted reference range : 166 - 358 10*3/ ?L. The reference r ender was not used to interpret this result as normal/abnormal . MPV (test code = 11.9 fL 9.5-12.9 91988-2) NRBC/100 WBC (test See_Comment [Automat ed code = 0822607728) message] The system which generated this result transmitted reference range : 0.0 - 10.0 /100 WBCs. The refer ence range was not u sed to interpret th is result as normal/abnormal . NRBC x10^3 (test code <0.01 See_Comment [Auto mated = 3446432116) message] The s ystem which generated this result transmitted reference range : 10*3/?L. The reference range was not used to interpret this result as normal/abnormal . GRAN MAT (NEUT) % 81.6 % (test code = 770-8) IMM GRAN % (test code 0.50 % = 4996695411) LYMPH % (test code = 11.1 % 736-9) MONO % (test code = 6.0 % 5905-5) EOS % (test code = 0.2 % 713-8) BASO % (test code = 0.6 % 706-2) GRAN MAT x10^3(ANC) 8.05 10*3/uL 1.88-7.09 H (test code = 0713198292) IMM GRAN x10^3 (test 0.05 10*3/uL 0.00-0.06 code = 4390644131) LYMPH x10^3 (test code 1.09 10*3/uL 1.32-3.29 L = 731-0) MONO x10^3 (test code 0.59 10*3/uL 0.33-0.92 = 742-7) EOS x10^3 (test code = <0.03 0.03-0.39 L 711-2) BASO x10^3 (test code 0.06 10*3/uL 0.01-0.07 = 704-7) Lab Interpretation Abnormal (test code = 87951-3) [facility] [id number] 17:18:00 Test Item Value Reference Range Interpretation Comments POCT PREG (test code = 1605) positive On board controls acceptable with present C Line (test code = 3574) POCT PREG LOT # (test code = 3575) [id number] POCT PREG TEST DATE (test code = 3576) Lab Interpretation (test code = Normal 68247-1) [facility] BHCG (QUANTITATIVE)2021-02-12 23:40:27 Test Item Value Reference Range Interpretation Comments BETA HCG (test See_Comment [Automated m essage] code = The system [employer] h 0792950924) generated this result transmit frank reference range : Non- fe male and male patien ts: <5 mIU/mL. The reference range was not used to interpret this result as normal/abnormal . NAMAN (test code Gestational Age ? ? = NAMAN) ?Range (mIU/mL) 1-10 ?Weeks ?95-41828750-66 Weeks ?75355-89628522-69 Weeks ?3884-01807643-46 Weeks ?1531-468327 Biotin has been reported to cause a negative bias, interpret results relative to patient's use of biotin. [facility] METABOLIC PANEL (NA, K, CL, CO2, GLUCOSE, BUN, CREATININE, CA)2021-02-12 22:54:00 Test Item Value Reference Range Interpretation Comments NA (test code = 134 mmol/L 135-145 L 5761904370) K (test code = 4.0 mmol/L 3.5-5.0 1829449814) CL (test code = 102 mmol/L 98-108 4548023764) CO2 TOTAL (test code = 22 mmol/L 23-31 L 9035716480) AGAP (test code = 2-16 1860047705) BUN (test code = 9 mg/dL 7-23 2997855453) GLUCOSE (test code = 86 mg/dL 70-110 3834478341) CREATININE (test code = 0.71 mg/dL 0.50-1.04 9978681668) CALCIUM (test code = 9.9 mg/dL 8.6-10.6 5201403935) eGFR (test code = mL/min/1.73m2 7366865147) NAMAN (test code = NAMAN) Association of Glomerular Filtration Rate (GFR) and Staging of Kidney Disease* + --+ --+ ------+| GFR (mL/min/1.73 m2) ?| With Kidney Damage ?| ?Without Kidney Damage+ --------+ --------+ +| ?>90 ?| ?Stage one ?| ? Normal ?+ ---+ ---+ -------+| ?60-89 ?| ?Stage two ?| ? Decreased GFR ? + --+ --+ ------+| ?30-59 ?| ?Stage three ?| ? Stage three ? + --+ --+ ------+| ?15-29 ?| ?Stage four ? | ? Stage four ?+ ---+ ---+ -------+| ?<15 (or dialysis) ? ?| ?Stage five ? | ? Stage five ?+ ---+ ---+ -------+ *Each stage assumes the associated GFR level has been in effect for at least three months. ?Stages 1 to 5, with or without kidney disease, indicate chronic kidney disease. Notes: Determination of stages one and two (with eGFR >59mL/min/1.73 m2) requires estimation of kidney damage for at least three months as defined by structural or functional abnormalities of the kidney, manifested by either:Pathological abnormalities or Markers of kidney damage (including abnormalities in the composition of the blood or urine or abnormalities in imaging tests). Lab Interpretation Abnormal (test code = 22634-1) [facility] WITH [id number] 22:26:58 Test Item Value Reference Range Interpretation Comments WBC (test code = See_Comment H [Automated 9439-2) message] The sy stem which generated this result transmitted reference range : 4.30 - 11.10 10*3/?L. The reference range was not used to interpret this result as normal/abnormal . RBC (test code = See_Comment [Automated 019-8) message] The sy stem which generated this result transmitted reference range : 3.93 - 5.25 10*6/?L. The reference range was not used to interpret this result as normal/abnormal . HGB (test code = 14.2 g/dL 11.6-15.0 718-7) HCT (test code = 40.9 % 35.7-45.2 4544-3) MCV (test code = 89.5 fL 80.6-95.5 787-2) MCH (test code = 31.1 pg 25.9-32.8 785-6) MCHC (test code = 34.7 g/dL 31.6-35.1 786-4) RDW-SD (test code = 39.8 fL 39.0-49.9 94696-1) RDW-CV (test code = 12.2 % 12.0-15.5 788-0) PLT (test code = See_Comment [Automated 777-3) message] The sy stem which generated this result transmitted reference range : 166 - 358 10*3/ ?L. The reference r ender was not used to interpret this result as normal/abnormal . MPV (test code = 12.2 fL 9.5-12.9 39285-0) NRBC/100 WBC (test See_Comment [Automat ed code = 8329055230) message] The system which generated this result transmitted reference range : 0.0 - 10.0 /100 WBCs. The refer ence range was not u sed to interpret th is result as normal/abnormal . NRBC x10^3 (test code <0.01 See_Comment [Auto mated = 9169188233) message] The s ystem which generated this result transmitted reference range : 10*3/?L. The reference range was not used to interpret this result as normal/abnormal . GRAN MAT (NEUT) % 73.8 % (test code = 770-8) IMM GRAN % (test code 0.50 % = 5353018441) LYMPH % (test code = 17.4 % 736-9) MONO % (test code = 7.0 % 5905-5) EOS % (test code = 0.6 % 713-8) BASO % (test code = 0.7 % 706-2) GRAN MAT x10^3(ANC) 8.59 10*3/uL 1.88-7.09 H (test code = 3111875340) IMM GRAN x10^3 (test 0.06 10*3/uL 0.00-0.06 code = 6912516336) LYMPH x10^3 (test code 2.02 10*3/uL 1.32-3.29 = 731-0) MONO x10^3 (test code 0.81 10*3/uL 0.33-0.92 = 742-7) EOS x10^3 (test code = 0.07 10*3/uL 0.03-0.39 711-2) BASO x10^3 (test code 0.08 10*3/uL 0.01-0.07 H = 704-7) Lab Interpretation Abnormal (test code = 83082-4) [facility]"
--- NOTE | 2021-05-11 22:36 | ER ---
Nurse's Notes [facility] Name: Quin De La Torre Age: 31 yrs Sex: Female : 1990 Arrival Date: 05/11/2021 Time: 19:38 Bed DIS1 Private MD: Diagnosis: Streptococcal pharyngitis Presentation: 05/11 20:35 Chief complaint: Patient states: " I just dont feel good. I had a headhache for a tw5 couple days, fatigued, sore throat, and cough. I just feel run down. I have not been able to eat or drink. If I do I throw it up.". Coronavirus screen: Vaccine status: Patient reports receiving the 2nd dose of the covid vaccine. Moderna. Ebola Screen: Patient negative for fever greater than or equal to 101.5 degrees Fahrenheit, and additional compatible Ebola Virus Disease symptoms Patient denies exposure to infectious person. Patient denies travel to an Ebola-affected area in the 21 days before illness onset. Initial Sepsis Screen: Does the patient meet any 2 criteria? No. Patient's initial sepsis screen is negative. Does the patient have a suspected source of infection? No. Patient's initial sepsis screen is negative. Risk Assessment: Do you want to hurt yourself or someone else? Patient reports no desire to harm self or others. Onset of symptoms was May 09, 2021. 20:35 Method Of Arrival: Ambulatory tw5 20:35 Acuity: DORI 3 tw5 Triage Assessment: 20:38 Headache History: Denies prior headaches. General: Appears in no apparent distress. tw5 Behavior is calm, cooperative, appropriate for age. Pain: Pain currently is 5 out of 10 on a pain scale. Pain began 2-3 days ago. Also complains of decreased appetite, nausea. Neuro: Level of Consciousness is awake, alert, obeys commands. ORTHOPAEDIC GENERAL: 20:35 LMP 12/23/2020, Verified, EDC 09/29/2021, Gestational age from LMP: 20 weeks 0 tw5 days Historical: - Allergies: 20:38 No Known Allergies; tw5 - Home Meds: 20:38 Vitamin Oral [Active]; tw5 - PMHx: 20:38 heart condition- patient is unaware of name; tw5 - PSHx: 20:38 None; tw5 - Immunization history:: Client reports receiving the 2nd dose of the Covid vaccine. - Social history:: Smoking status: Patient denies any tobacco usage or history of. Screenin:37 Abuse screen: Denies threats or abuse. Denies injuries from another. Nutritional tw5 screening: Has had N/V for 3 or more days. Tuberculosis screening: No symptoms or risk factors identified. Fall Risk None identified. Vital Signs: 20:35 BP 105 / 70; Pulse 78; Resp 18; Temp 97.6(O); Pulse Ox 97% on R/A; Weight 85.73 kg; tw5 Height 5 ft. 9 in. (175.26 cm); Pain 0/10; 20:35 Resp 18; tw5 20:35 Body Mass Index 27.91 (85.73 kg, 175.26 cm) tw5 ED Course: 19:38 Patient arrived in ED. ja2 20:37 Triage completed. tw5 20:37 Patient has correct armband on for positive identification. tw5 22:00 Nacho Spears PA is PHCP. [facility] 22:00 Jayjay Salazar MD is Attending Physician. [facility] 22:58 Arm band placed on right wrist. ic1 22:58 Patient did not have IV access during this emergency room visit. ic1 Administered Medications: No medications were administered Outcome: 22:35 Discharge ordered by . [facility] 22:58 Discharged to home ambulatory. ic1 22:58 Condition: stable 22:58 Discharge instructions given to patient, Instructed on discharge instructions, follow up and referral plans. medication usage, Demonstrated understanding of instructions, follow-up care, medications, Prescriptions given X 1. 22:58 Patient left the ED. ic1 Signatures: Nacho Spears PA PA jmm Alexander, Jessica ja2 Wood, Tiffany tw5 Dayna Avalos, RN RN ic1 Corrections: (The following items were deleted from the chart) 20:40 20:38 Allergies: No Known Allergies; 20:40 20:38 Home Meds: Vitamin Oral; 20:40 20:38 PMHx: None; tw tw
--- NOTE | 2021-05-11 22:36 | EDPHYS ---
Physician Documentation [facility] [place] Name: Quin De La Torre Age: 31 yrs Sex: Female : 1990 Arrival Date: 05/11/2021 Time: 19:38 Bed DIS1 Private MD: ED Physician Jayjay Salazar HPI: 05/11 20:38 This 31 yrs old Female presents to ER via Ambulatory with complaints of Headache, jmm Fever, Congestion, Sore Throat, CHILLS. 20:38 The patient presents with sore throat. Onset: The symptoms/episode began/occurred jmm gradually, 3 day(s) ago. Modifying factors: The symptoms are alleviated by nothing, the symptoms are aggravated by nothing. Associated signs and symptoms: Pertinent positives: cough. It is unknown whether or not the patient has had similar symptoms in the past. 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 - Social history:: Smoking status: Patient denies any tobacco usage or history of. ROS: 20:38 Constitutional: Positive for body aches, chills. jmm 20:38 ENT: Positive for sore throat. 20:38 Respiratory: Positive for cough. 20:38 All other systems are negative. Exam: 20:38 Constitutional: This is a well developed, well nourished patient who is awake, alert, jmm and in no acute distress. Head/Face: atraumatic. Eyes: EOMI, no conjunctival erythema appreciated 20:38 Neck: Trachea midline, Supple Chest/axilla: Normal chest wall appearance and motion. Cardiovascular: Regular rate and rhythm. No edema appreciated Respiratory: Normal respirations, no respiratory distress appreciated Abdomen/GI: Non distended, soft Back: Normal ROM Skin: General appearance color normal MS/ Extremity: Moves all extremities, no obvious deformities appreciated, no edema noted to the lower extremities Neuro: Awake and alert, normal gait Psych: Behavior is normal, Mood is normal, Patient is cooperative and pleasant 20:38 ENT: Posterior pharynx: Airway: normal, Uvula: midline, erythema, that is moderate, peritonsillar mass, is not appreciated. Vital Signs: 20:35 BP 105 / 70; Pulse 78; Resp 18; Temp 97.6(O); Pulse Ox 97% on R/A; Weight 85.73 kg; tw5 Height 5 ft. 9 in. (175.26 cm); Pain 0/10; 20:35 Resp 18; tw5 20:35 Body Mass Index 27.91 (85.73 kg, 175.26 cm) tw5 MDM: 22:30 Patient medically screened. [facility] 22:34 Data reviewed: vital signs, nurses notes. Counseling: I had a detailed discussion with emir the patient and/or guardian regarding: the historical points, exam findings, and any diagnostic results supporting the discharge/admit diagnosis, lab results, the need for outpatient follow up, to return to the emergency department if symptoms worsen or persist or if there are any questions or concerns that arise at home. ED course: Patient is alert and non toxic in appearance in the ED. No signs of resp distress. Patient advised to follow up with pcp and otherwise given strict return precautions. . 05/11 20:37 Order name: Strep tw05/11 20:38 Order name: Group A Streptococcus Rapid Sc; Complete Time: 22:29 EDAL 05/11 20:41 Order name: SARS-COV-2 RT PCR (Document "Date of Onset" if Symptomatic); Complete Time: 22:29 Administered Medications: No medications were administered Disposition: 05/12 05:18 Co-signature as Attending Physician, Jayjay Salazar MD. [email or web address] Disposition Summary: 05/11/21 22:35 Discharge Ordered Location: Home [facility] Condition: Stable [facility] Diagnosis - Streptococcal pharyngitis [facility] Followup: [facility] - With: Private Physician - When: 2 - 3 days - Reason: Recheck today's complaints, Continuance of care, Re-evaluation by your physician Discharge Instructions: - Discharge Summary Sheet [facility] - Strep Throat, Adult [facility] Forms: - Medication Reconciliation Form [facility] - Thank You Letter [facility] - Antibiotic Education [facility] - Prescription Opioid Use [facility] Prescriptions: - Amoxicillin 875 mg Oral Tablet - take 1 tablet by ORAL route every 12 hours for 10 days; 20 tablet; Refills: 0, jmm Product Selection Permitted Signatures: Dispatcher [employer] Nacho Aponte PA PA jmm Holmes, Maurice, MD MD [facility] Trina Chinchilla Corrections: (The following items were deleted from the chart) 05/11 20:40 20:38 Allergies: No Known Allergies; 20:40 20:38 Home Meds: Vitamin Oral; 20:40 20:38 PMHx: None;
[2021-05-11 23:52] VITALS: BP 105/70; TEMP 97.6; O2SAT 97
== END 2021-05-11 22:58 | disposition home or self-care (01) ==
LOC: ER 19:28
DX: O99.512 Diseases of the respiratory system complicating pregnancy, second trimester (principal); J02.0 Streptococcal pharyngitis; Z3A.20 20 weeks gestation of pregnancy; Z20.822 Contact with and (suspected) exposure to COVID-19
CPT/HCPCS: 87081; 99282; U0003

== ENCOUNTER 2024-05-31 11:41 | Emergency (ER) | payer OTHER ==
--- OUTSIDE RECORDS SUMMARY | 2024-05-31 11:45 | XMS REPORT | Continuity of Care Document ---
Author Name Unknown Address [address] [facility] [place] [address] [facility] thconnect Address [address] [place] [address] Care Team Providers Care Rn First Assistant Name Role Phone Pcp, Patient Does Not Have A Primary Care Physic aviva RYAN LU Attending Clinician Unavailable LEENAN TOMPKINS Attending Clinician Unavailab le LAB90 Attending Clinician Unavailable MD THOMAS Attending Clinician Unavailab le [email or web address]_S Attending Clinician UnavailFRAN [place] Attending Clinician UnavailFRAN [place] Attending Clinician UnavailRyan Reza MD Attending Clinician Unavailable Doctor Unassigned, [place] Attending Clinician Aixa Mac RN Attending Clinician Unavail able Pob, [facility] Main Attending Clinician Unavailabl e Only, Adc Test Attending Clinician Unavailable Lab, Ang - Db Attending Clinician Unavailable Case RN, Irma A Attending Clinician Unavailable UNKNOWN, ATTENDING Attending Clinician Unavailab erin SHELDONSAMMIE WALLACE Attending Clinician UnavailPaul Munoz MD Attending Clinician [phone] Only, Ang Db Test Attending Clinician Unavailjohn Waters WINDOW SHADE RING SEWER, Kong Attending Clinician [phone] KONG WATERS Attending Clinician Unavailable 2, [facility] Usg Room Attending Clinician Unavailjomar Horne MD, Isabel Attending Clinician + WOOD HORNE ISABEL Attending Clinician Unav ailable MEME ONEAL Attending Clinician Unavailable Ultrasound, [facility] Attending Clinician Unavaila Meme Chase MD Attending Clinician [phone] ADKITTY HERNANDEZ Attending Clinician Unavailable Kitty Lozoya MD Attending Clinician [phone] JOHNNY DENNIS Attending Clinician Unavail able Nurse, [facility] Pob Immunization Attending Clinician Unavailable Johnny Dennis DO Attending Clinician [phone] Maggi RN, Dunia M Attending Clinician Unavailable Bebe Georges PA-C Attending Clinician [phone] BEBE GEORGES Attending Clinician Unavailable Lucy Vaz MD Attending Clinician + LUCY VAZ Attending Clinician Unav ailable 2, [facility] Lab Attending Clinician Unavailable APUL ALONSO Attending Clinician Unavailable Corrine Macias MD Attending Clinician [phone] CORRINE MACIAS Attending Clinician Unavailable PATRICIO BLAS Attending Clinician Unavailable Patricio Tyler S Attending Clinician [phone] Akinlore WHYon ONEILL Attending Clinician + YON PICHARDO Attending Clinician Unavail able DELVIS SHEA Attending Clinician UnavailDelvis Aguillon MD Attending Clinician [phone] RYAN LU Admitting Clinician Unavailable [email or web address]_S Admitting Clinician UnavailRyan Reza MD Admitting Clinician [phone] PAUL ALONSO Admitting Clinician Unavailable Paul Alonso MD Admitting Clinician PATRICIO BLAS Admitting Clinician Unavailable Payers Payer Name Policy Type Policy Number Effective Date Expirati on Date Source [employer] MEDICAID [id number] 2021 00:00:00 SHERLY THOMPSON TERRY Cohn HMO [employer] HEL[employer] 94 ON 9 [id number] 2023 00:00:00 Problems Condition Name Condition Details Condition Category Status Onset Date Resolution Date Last Treatment Date Treating Clinician Comments Source Mild major depression Mild major depression Disease Active 11-21 00:00: 00 Blanca Sedavidold - Externa l Unable to lose weight Unable to lose weight Disease Active 11-21 00:00: 00 Blanca Seybold - Externa l Class 1 obesity due to excess calories without serious comorbidit y with body mass index (BMI) of 31.0 to 31.9 in adult Class 1 obesity due to excess calories without serious comorbidit y with body mass index (BMI) of 31.0 to 31.9 in adult Disease Active 11-21 00:00: 00 Blanca Seybold - Externa l History of gestationa l hypertensi on History of gestationa l hypertensi on Disease Active 2020-05 00:00: 00 [facility] Elevated BP without diagnosis of hypertensi on Elevated BP without diagnosis of hypertensi on Disease Active 2020-05 00:00: 00 [facility] Sterilizat ion consult Sterilizat ion consult Disease Active 09-10 00:00: 00 [facility] Heart murmur Heart murmur Disease Active 2017-05 00:00: 00 Overview: Formattin g of this note might be different from the original. Reports history has a PCP she currently sees [facility] Multiparit y Multiparit y Disease Active 2017-05 00:00: 00 [facility] Over weight Over weight Disease Active 2017-05 00:00: 00 [facility] Allergies, Adverse Reactions, Alerts Allergy Name Allergy Type Status Severity Reaction(s) Onset Date Inactive Date Treating Clinician Comments Source Latex Propensi ty to adverse reaction s Active Rash 2020-05 00:00: 00 Blanca romero LATEX DRUG INGREDI Active Rash 2020-05 00:00: 00 [facility] Latex Propensi ty to adverse reaction s Active Rash 2020-05 00:00: 00 [facility] Adhesive Propensi ty to adverse reaction s Active Rash 2014-05 00:00: 00 Blanca romero ADHESIVE Drug Class Active Rash 2014-05 00:00: 00 [facility] Adhesive Propensi ty to adverse reaction s Active Rash 2014-05 00:00: 00 [facility] Adhesive Propensi ty to adverse reaction s Active Rash 2014-05 00:00: 00 [facility] Social History Social Habit Start Date Stop Date Quantity Comments Source ASSERTION [facility] Sexual orientation K drew Vazquez - External Tobacco use and exposure 2023-11-22 00:00:00 2023-11-22 00:00:00 Smokeless tobacco non-user Blanca Vazquez - External History of Social function 2023-11-22 00:00:00 2023-11-22 00:00:00 Blanca Vazquez - External Exposure to SARS-CoV-2 (event) 2022-02-11 00:00:00 2022-02-21 22:03:00 Not sure [facility] Alcohol intake 2021-04-14 00:00:00 2021-04-14 00:00:00 Current non-drinker of alcohol (finding) [facility] Sex assigned at 1990 00:00:00 1990 00:00:00 Blanca Vazquez - External Smoking Status Start Date Stop Date Source Never smoked tobacco Blanca Vazquez - External Medications Ordered Medication Name Filled Medication Name Start Date Stop Date Current Medication? Ordering Clinician Indication Dosage Frequency Signature (SIG) Comments Components Source Metformin HCl ER 500 MG oral TABLET SR 24 HR 11-21 09:44: 15 11-21 00:00 :00 No 500mg QD Take 1 tablet (500 mg total) by mouth daily (with breakfast) . Blanca romero Sertraline HCl (Zoloft) 25 MG oral Tablet 11-21 00:00: 00 Yes [id number] 25mg QD Take 1 tablet (25 mg total) by mouth daily. Blanca romero Semaglutide -SANAM-Daniel ght Management 0.25 MG/0.5ML Subcutaneou s Solution Auto-inject or 11-21 00:00: 00 Yes [id number] .25mg Q1W Inject 0.25 mg into the skin once a week. Blanca romero Naltrexone- buPROPion HCl ER (Contrave) 8-90 MG oral Tablet 12 Hour Sustained Release 11-08 00:00: 00 11-21 00:00 :00 No Blanca romero HYDROcodone -acetaminop hen (NORCO) 10-325 mg tablet 1 tablet 11-12 14:24: 06 Yes 1{tbl} 1 tablet, Oral, PRN, 1 dose, Starting on Mon11/12/21 at 0924, Until Discontinu ed, Routine, Pain (scale 7-10), DSU Recovery [facility] HYDROcodone -acetaminop hen (NORCO 5) 5-325 mg tablet 1 tablet 11-12 14:24: 06 Yes 1{tbl} 1 tablet, Oral, PRN, 1 dose, Starting on Mon11/12/21 at 0924, Until Discontinu ed, Routine, Pain (scale 4-6), [facility] acetaminoph en (TYLENOL) tablet 325 mg 11-12 14:24: 06 Yes 325mg 325 mg, Oral, PRN, 1 dose, Starting on Mon11/12/21 at 0924, Until Discontinu ed, Routine, Pain (scale 1-3), DSU [facility] FENTanyl PF (SUBLIMAZE (PF)) injection 25 mcg 11-12 13:52: 08 Yes 25ug 25 mcg, Slow IV Push, Q5MIN PRN, 4 doses, Starting on Mon11/12/21 at 0852, Until Discontinu ed, Routine, Pain (scale 4-6), PACU [facility] HYDROmorphO ne (DILAUDID) injection 0.2 mg 11-12 13:52: 08 Yes .2mg 0.2 mg, Slow IV Push, Q5MIN PRN, 10 doses, Starting on Mon11/12/21 at 0852, Until Discontinu ed, Routine, Pain (scale 7-10), PACU
Us e approved by (Faculty): PACU USE -ANESTHESI A SERVICE-HY DROMORPHON E INJECTIONS [facility] ondansetron (ZOFRAN (PF)) injection 4 mg 11-12 13:52: 08 11-12 14:03 :00 No 4mg 4 mg, Slow IV Push, PRN, 1 dose, Starting on Mon11/12/21 at 0852, Until Mon11/12/21 at 0903, Routine, Nausea and Vomiting (N/V), PACU [facility] water for irrigation irrigation solution 11-12 13:34: 00 11-12 14:57 :32 No PRN, Starting on Mon11/12/21 at 0834, Until Mon11/12/21 at 0957, Routine, Intra-op [facility] bupivacaine -epinephrin e-pf (SENSORCAIN E W/EPINEPHRI NE) 0.25 %-1:200,000 injection 11-12 13:29: 00 11-12 14:57 :32 No PRN, Starting on Mon11/12/21 at 0829, Until Mon11/12/21 at 0957, Routine, Intra-op [facility] lactated ringers IV infusion 1,000 mL 11-12 11:15: 00 11-12 11:18 :00 No 1000mL at 42 mL/hr, 1,000 mL, IV Infusion, ONCE, 1 dose, On Mon11/12/21 at 0615, Routine, DSU Pre-op [facility] ibuprofen 600 mg tablet 11-12 00:00: 00 Yes [id number] 600mg Take 1 tablet by mouth every 6 (six) hours as needed for Pain (scale 1-3). [facility] Omeprazole 20 mg tablet -21 00:00: 00 Yes [id number] 20mg Take 1 tablet by mouth daily. [facility] SERTraline (ZOLOFT) 25 mg tablet 17 00:00: 00 Yes [id number] 25mg Take 1 tablet by mouth daily. [facility] hydrocortis one (ANUSOL-HC) 2.5 % rectal cream 09-24 00:00: 00 Yes [id number] Insert into rectum 2 (two) times daily. [facility] vit no.124/iron /folic ( VITAMIN ORAL) 09-22 08:22: 30 09-22 00:00 :00 No [id number] Take by mouth. [facility] phenylephri ne 0.25 % suppository 09-22 00:00: 00 Yes [id number] 102 1{suppo sitory} Insert 1 Suppositor y into rectum 2 (two) times daily. Apply for hemorrhoid s [facility] docusate 100 mg capsule 09-22 00:00: 00 Yes [id number] 102 200mg Take 2 capsules by mouth once daily as needed for Constipati on. [facility] ibuprofen 600 mg tablet 18 00:00: 00 11-12 00:00 :00 No [id number] 102 600mg Take 1 tablet by mouth every 6 (six) hours as needed (Pain). Take with food or milk. [facility] terconazole 80 mg vaginal suppository 4-29 00:00: 00 09-07 04:59 :00 No [id number] 80mg Insert 1 Suppositor y into vagina at bedtime for 3 days. [facility] Omeprazole 20 mg tablet 3-24 00:00: 00 09-13 00:00 :00 No [id number] 20mg Take 1 tablet by mouth daily. [facility] Sertraline HCl (Zoloft) 25 MG oral Tablet 07-22 00:00: 00 11-21 00:00 :00 No 25mg QD Take 1 tablet (25 mg total) by mouth daily. Blanca romero vit w/iron fumarate and FA ( VITAMIN WITH MINERALS) tablet 2020-05 00:00: 00 08-02 00:00 :00 No [id number] 1{tbl} Take 1 tablet by mouth daily. [facility] ondansetron (ZOFRAN ODT) 4 mg disintegrat ing tablet 2020-05 008 00:00: 00 06-18 00:00 :00 No [id number] 4mg Take 1 tablet by mouth every 8 (eight) hours as needed for Nausea and Vomiting (N/V). [facility] Immunizations Ordered Immunization Name Filled Immunization Name Date Status Comments Source TDAP 2021-07-19 00:00:00 Completed [facility] TDAP 2021-07-19 00:00:00 Completed [facility] TDAP 2021-07-19 00:00:00 Completed [facility] TDAP 2021-07-19 00:00:00 Completed [facility] TDAP 2021-07-19 00:00:00 Completed [facility] TDAP 2021-07-19 00:00:00 Completed [facility] TDAP 2021-07-19 00:00:00 Completed [facility] TDAP 2021-07-19 00:00:00 Completed [facility] TDAP 2021-07-19 00:00:00 Completed [facility] SARS-COV-2 COVID-19 MODERNA 0.25ML BOOSTER VACCINE 2021-05-28 00:00:00 Completed [facility] SARS-COV-2 COVID-19 MODERNA 0.25ML BOOSTER VACCINE 2021-05-28 00:00:00 Completed [facility] SARS-COV-2 COVID-19 MODERNA 0.25ML BOOSTER VACCINE 2021-05-28 00:00:00 Completed [facility] SARS-COV-2 COVID-19 MODERNA 0.25ML BOOSTER VACCINE 2021-05-28 00:00:00 Completed [facility] SARS-COV-2 COVID-19 MODERNA 0.25ML BOOSTER VACCINE 2021-05-28 00:00:00 Completed [facility] SARS-COV-2 COVID-19 MODERNA 0.25ML BOOSTER VACCINE 2021-05-28 00:00:00 Completed [facility] SARS-COV-2 COVID-19 MODERNA 0.25ML BOOSTER VACCINE 2021-05-28 00:00:00 Completed [facility] SARS-COV-2 COVID-19 MODERNA 0.25ML BOOSTER VACCINE 2021-05-28 00:00:00 Completed [facility] SARS-COV-2 COVID-19 MODERNA 0.25ML BOOSTER VACCINE 2021-05-28 00:00:00 Completed [facility] Influenza Virus Vaccine Quad IM, Preserv and ABX Free 6 MO-64 YRS 2021-03-11 00:00:00 Completed [facility] Influenza Virus Vaccine Quad IM, Preserv and ABX Free 6 MO-64 YRS 2021-03-11 00:00:00 Completed [facility] Influenza Virus Vaccine Quad IM, Preserv and ABX Free 6 MO-64 YRS 2021-03-11 00:00:00 Completed [facility] Influenza Virus Vaccine Quad IM, Preserv and ABX Free 6 MO-64 YRS 2021-03-11 00:00:00 Completed [facility] Influenza Virus Vaccine Quad IM, Preserv and ABX Free 6 MO-64 YRS 2021-03-11 00:00:00 Completed [facility] Influenza Virus Vaccine Quad IM, Preserv and ABX Free 6 MO-64 YRS 2021-03-11 00:00:00 Completed [facility] Influenza Virus Vaccine Quad IM, Preserv and ABX Free 6 MO-64 YRS 2021-03-11 00:00:00 Completed [facility] Influenza Virus Vaccine Quad IM, Preserv and ABX Free 6 MO-64 YRS 2021-03-11 00:00:00 Completed [facility] Influenza Virus Vaccine Quad IM, Preserv and ABX Free 6 MO-64 YRS 2021-03-11 00:00:00 Completed [facility] SARS-COV-2 COVID-19 MODERNA VACCINE 2020-07-22 00:00:00 Completed [facility] SARS-COV-2 COVID-19 MODERNA VACCINE 2020-07-22 00:00:00 Completed [facility] SARS-COV-2 COVID-19 MODERNA VACCINE 2020-07-22 00:00:00 Completed [facility] SARS-COV-2 COVID-19 MODERNA VACCINE 2020-07-22 00:00:00 Completed [facility] SARS-COV-2 COVID-19 MODERNA VACCINE 2020-07-22 00:00:00 Completed [facility] SARS-COV-2 COVID-19 MODERNA VACCINE 2020-07-22 00:00:00 Completed [facility] SARS-COV-2 COVID-19 MODERNA 12+ YRS VACCINE 2020-07-22 00:00:00 Completed [facility] SARS-COV-2 COVID-19 MODERNA 12+ YRS VACCINE 2020-07-22 00:00:00 Completed [facility] SARS-COV-2 COVID-19 MODERNA 12+ YRS VACCINE 2020-07-22 00:00:00 Completed [facility] SARS-COV-2 COVID-19 MODERNA VACCINE 2020-07-01 00:00:00 Completed [facility] SARS-COV-2 COVID-19 MODERNA VACCINE 2020-07-01 00:00:00 Completed [facility] SARS-COV-2 COVID-19 MODERNA VACCINE 2020-07-01 00:00:00 Completed [facility] SARS-COV-2 COVID-19 MODERNA VACCINE 2020-07-01 00:00:00 Completed [facility] SARS-COV-2 COVID-19 MODERNA VACCINE 2020-07-01 00:00:00 Completed [facility] SARS-COV-2 COVID-19 MODERNA VACCINE 2020-07-01 00:00:00 Completed [facility] SARS-COV-2 COVID-19 MODERNA 12+ YRS VACCINE 2020-07-01 00:00:00 Completed [facility] SARS-COV-2 COVID-19 MODERNA 12+ YRS VACCINE 2020-07-01 00:00:00 Completed [facility] SARS-COV-2 COVID-19 MODERNA 12+ YRS VACCINE 2020-07-01 00:00:00 Completed [facility] SARS-COV-2 COVID-19 MODERNA 12+ YRS VACCINE Unknown Completed [facility] Influenza Virus Vaccine Quad IM, Preserv and ABX Free 6 MO-64 YRS (FLUCELVAX) Unknown Completed [facility] TDAP Unknown Completed [facility] Influenza Virus Vaccine Unknown Completed [facility] SARS-COV-2 COVID-19 MODERNA 12+ YRS VACCINE Unknown Completed [facility] Covid-19 Vaccine Moderna (Spikevax), Mrna-lnp, Andre Protein, Pf Unknown Completed Blanca Seybold - External Influenza Virus Vaccine Quad IM, Preserv and ABX Free 6 MO-64 YRS (FLUCELVAX) Unknown Completed [facility] TDAP Unknown Completed [facility] Influenza Virus Vaccine Unknown Completed [facility] SARS-COV-2 COVID-19 MODERNA 12+ YRS VACCINE Unknown Completed [facility] Influenza Virus Vaccine Quad IM, Preserv and ABX Free 6 MO-64 YRS (FLUCELVAX) Unknown Completed [facility] TDAP Unknown Completed [facility] Influenza Virus Vaccine Unknown Completed [facility] SARS-COV-2 COVID-19 MODERNA 12+ YRS VACCINE Unknown Completed [facility] Influenza Virus Vaccine Quad IM, Preserv and ABX Free 6 MO-64 YRS (FLUCELVAX) Unknown Completed [facility] TDAP Unknown Completed [facility] Influenza, Injectable, Mdck, Preservative Free, Quadrivalent Unknown Completed Blanca Seybold - External Influenza Virus Vaccine Unknown Completed [facility] SARS-COV-2 COVID-19 MODERNA 12+ YRS VACCINE Unknown Completed [facility] Influenza Virus Vaccine Quad IM, Preserv and ABX Free 6 MO-64 YRS (FLUCELVAX) Unknown Completed [facility] Influenza Virus Vaccine Unknown Completed [facility] SARS-COV-2 COVID-19 MODERNA 12+ YRS VACCINE Unknown Completed [facility] Influenza Virus Vaccine Quad IM, Preserv and ABX Free 6 MO-64 YRS (FLUCELVAX) Unknown Completed [facility] Influenza Virus Vaccine Unknown Completed [facility] SARS-COV-2 COVID-19 MODERNA 12+ YRS VACCINE Unknown Completed [facility] Influenza Virus Vaccine Quad IM, Preserv and ABX Free 6 MO-64 YRS (FLUCELVAX) Unknown Completed [facility] Influenza Virus Vaccine Unknown Completed [facility] Influenza Virus Vaccine, Unspecified Formulation Unknown Completed Blanca Camposold - External SARS-COV-2 COVID-19 MODERNA 12+ YRS VACCINE Unknown Completed [facility] Influenza Virus Vaccine Quad IM, Preserv and ABX Free 6 MO-64 YRS (FLUCELVAX) Unknown Completed [facility] Influenza Virus Vaccine Unknown Completed [facility] Tdap- (Boostrix, Adacel) Unknown Completed Blanca Camposold - External Vital Signs Vital Name Observation Time Observation Value Comments S ource Systolic blood pressure 2023-11-22 14:18:00 116 mm[Hg] Blanca Camposo ld - External Diastolic blood pressure 2023-11-22 14:18:00 78 mm[Hg] Blanca Camposo ld - External Heart rate 2023-11-22 14:18:00 80 /min Syed y George - External Body temperature 2023-11-22 14:18:00 36.83 Katty Blanca Camposold - External Respiratory rate 2023-11-22 14:18:00 18 /min Blanca Camposold - External Body height 2023-11-22 14:18:00 172.7 cm Kiana mccormack Seybold - External Body weight 2023-11-22 14:18:00 92.534 kg Kiana mccormack Seybold - External BMI 2023-11-22 14:18:00 31.02 kg/m2 Kiana mccormack Seybold - External Oxygen saturation in Arterial blood by Pulse oximetry 2023-11-22 14:18:00 98 /min Blanca Camposo ld - External Systolic blood pressure 2021-11-12 14:34:00 110 mm[Hg] [facility] Diastolic blood pressure 2021-11-12 14:34:00 73 mm[Hg] [facility] Heart rate 2021-11-12 14:34:00 53 /min [facility] Respiratory rate 2021-11-12 14:34:00 11 /min [facility] Oxygen saturation in Arterial blood by Pulse oximetry 2021-11-12 14:34:00 99 /min [facility] Body temperature 2021-11-12 13:46:00 36.5 Katty [facility] Body height 2021-11-02 15:17:00 175.3 cm [facility] Body weight 2021-11-02 15:17:00 83.3 kg [facility] BMI 2021-11-02 15:17:00 27.11 kg/m2 [facility] Systolic blood pressure 2021-11-12 14:34:00 110 mm[Hg] [facility] Diastolic blood pressure 2021-11-12 14:34:00 73 mm[Hg] [facility] Heart rate 2021-11-12 14:34:00 53 /min [facility] Respiratory rate 2021-11-12 14:34:00 11 /min [facility] Oxygen saturation in Arterial blood by Pulse oximetry 2021-11-12 14:34:00 99 /min [facility] Body temperature 2021-11-12 13:46:00 36.5 Katty [facility] Body height 2021-11-02 15:17:00 175.3 cm [facility] Body weight 2021-11-02 15:17:00 83.3 kg [facility] BMI 2021-11-02 15:17:00 27.11 kg/m2 [facility] Procedures Procedure Date / Time Performed Performing Clinician Source CPS / APS / FPS 2021-12-03 05:01:00 Doctor Unass igned, [place] [facility] STERILIZATION CONSENT FORM 2021-11-19 05:01:00 Doctor Unassigned, [place] [facility] LAPAROSCOPIC SALPINGECTOMY 2021-11-12 12:28:00 Ryan Lu [facility] DSU PRE-OP 2021-10-25 05:01:00 Doctor Unass igned, [place] [facility] DSU PRE-OP 2021-10-25 05:01:00 Doctor Unass igned, [place] [facility] Encounters Start Date/Time End Date/Time Encounter Type Admission Type Attending Clinicians Care Facility Care Department Encounter ID Source 2021-10-22 14:23:32 Outpatient R ALY, RYAN [facility] [id number] Unive [facility] 2021-09-20 16:01:28 Outpatient P [facility] EUGENE [id number] [facility] 2021-06-30 15:31:19 Outpatient P [facility] [id number] [facility] 2023-12-28 14:00:00 2023-12-28 14:00:00 Outpatient LEEANN TOMPKINS BLANCA SCHULTZ [id number] Blanca [facility] 2023-12-11 09:00:00 2023-12-11 09:00:00 Outpatient RUDY TOMPKINSIVAN SCHULTZ [id number] [facility] 2023-11-23 00:00:00 2023-11-23 00:00:00 Outpatient RUDY TOMPKINSTHIA BLANCA SCHULTZ [id number] [facility] 2023-11-23 00:00:00 2023-11-23 00:00:00 Outpatient LEEANN TOMPKINS BLANCA SCHULTZ [id number] [facility] 2023-11-22 10:15:00 2023-11-22 10:15:00 Outpatient LAB90 BLANCA SCHULTZ [id number] [facility] 2023-11-22 09:30:00 2023-11-22 09:30:00 Outpatient PJ TOMPKINSJomar SCHULTZ [id number] [facility] 2023-11-22 00:00:00 2023-11-22 00:00:00 Outpatient PJ TOMPKINSJomar SCHULTZ [id number] [facility] 2023-11-02 00:00:00 2023-11-02 00:00:00 Outpatient MD BLANCA REYNA [id number] [facility] 2023-11-02 00:00:00 2023-11-02 00:00:00 Outpatient MD BLANCA REYNA [id number] [facility] 2023-03-04 00:00:00 2023-03-04 00:00:00 Outpatient GC_GCBZW_Ka gabrielyala_S [facility] [id number] [facility] 2022-10-11 13:00:00 2022-10-11 13:00:00 Outpatient R FRAN ALEJANDRO CHERYAL [facility] [id number] [facility] 2022-09-21 00:00:00 2022-09-21 00:00:00 Refill Ryan Lu [facility] 1.2840.114 350.1.13.10 4.2.7.2.686 [id number] 134 [id number] [facility] 2022-06-03 00:00:00 2022-06-03 00:00:00 Refill Ryan Lu [facility] 1.0.114 350.1.13.10 4.2.7.2.686 [id number] 134 [id number] [facility] 2022-05-18 13:00:00 2022-05-18 13:00:00 Outpatient R [facility] [id number] [facility] 2022-04-05 10:15:00 2022-04-05 10:15:00 Outpatient R FRAN ALEJANDRO CHERYAL [facility] [id number] [facility] 2022-02-23 13:00:00 2022-02-23 13:00:00 Outpatient R [facility] [id number] [facility] 2022-01-25 00:00:00 2022-01-25 00:00:00 Refill Ryan Lu [facility] 1..114 350.1.13.10 4.2.7.2.686 [id number] 134 [id number] [facility] 2021-12-10 00:00:00 2021-12-10 00:00:00 Telephone Ryan Lu [facility] 1.2840.114 350.1.13.10 4.2.7.2.686 [id number] 134 [id number] [facility] 2021-12-03 00:00:00 2021-12-03 00:00:00 Orders Only Doctor Unassigned, Dimock [facility] 1.840.114 350.1.13.10 4.2.7.2.686 [id number] [facility] 2021-11-30 15:00:00 2021-11-30 15:00:00 Outpatient R JEM LUN [facility] [id number] [facility] 2021-11-19 00:00:00 2021-11-19 00:00:00 Orders Only Doctor Unassigned, Dimock [facility] 1.840.114 350.1.13.10 4.2.7.2.686 [id number] [facility] 2021-11-18 15:00:00 2021-11-18 15:00:00 Outpatient R ALY RYAN [facility] [id number] [facility] 2021-11-18 15:00:00 2021-11-18 15:00:00 Outpatient R ALYJEMN [facility] [id number] [facility] 2021-11-18 15:00:00 2021-11-18 15:00:00 Outpatient R ALYJEMN [facility] [id number] [facility] 2021-11-16 00:00:00 2021-11-16 00:00:00 Patient Secure Msg Aly Ryan [facility] 1..114 350.1.13.10 4.2.7.2.686 [id number] 134 [id number] [facility] 2021-11-12 07:15:00 2021-11-12 09:50:00 Surgery Aly Ryan [facility] 1.0.114 350.1.13.10 4.2.7.2.686 [id number] [facility] 2021-11-12 06:06:00 2021-11-12 09:46:00 Outpatient R RYAN LU [facility] [id number] [facility] 2021-11-12 06:06:00 2021-11-12 09:46:00 Hospital Encounter Ryan Lu [facility] 1.2840.114 350.1.13.10 4.2.7.2.686 [id number] [facility] 2021-11-11 00:00:00 2021-11-11 00:00:00 Patient Secure Aixa Morales [facility] 1.284.114 350.1.13.10 4.2.7.2.686 [id number] 134 [id number] [facility] 2021-11-10 09:00:00 2021-11-10 09:15:00 Physical Fitness Trainer Visit Pob, Adc Lab Main Ryan Lu [facility] 1.84.114 350.1.13.10 4.2.7.2.686 [id number] [facility] 2021-11-10 08:45:00 2021-11-10 09:00:00 Laboratory Only Only, Adc Test Ryan Lu [facility] 1.84.114 350.1.13.10 4.2.7.2.686 [id number] [facility] 2021-11-10 08:45:00 2021-11-10 08:45:00 Outpatient R RYAN LU [facility] [id number] [facility] 2021-11-10 08:30:00 2021-11-10 08:45:00 Physical Fitness Trainer Visit Lab, Ang - Db Ryan Lu [facility] 1.840.114 350.1.13.10 4.2.7.2.686 [id number] 353 [id number] [facility] 2021-11-10 00:00:00 2021-11-10 00:00:00 Orders Only Doctor Unassigned, Dimock [facility] 1.2840.114 350.1.13.10 4.2.7.2.686 [id number] [facility] 2021-10-23 00:00:00 2021-10-23 00:00:00 Refill Ryan Lu [facility] 1.2840.114 350.1.13.10 4.2.7.2.686 [id number] 134 [id number] [facility] 2021-10-22 00:00:00 2021-10-22 00:00:00 Patient Secure Msg Case, Irma Hadley [facility] 1..114 350.1.13.10 4.2.7.2.686 [id number] 134 [id number] [facility] 2021-10-21 11:00:00 2021-10-21 11:27:40 Outpatient R RYAN LU [facility] [id number] [facility] 2021-10-21 11:00:00 2021-10-21 11:27:40 Routine Visit [place] Lu [facility] 1.0.114 350.1.13.10 4.2.7.2.686 [id number] 134 [id number] [facility] 2021-10-17 00:00:00 2021-10-17 00:00:00 Refill Ryan Lu [facility] 1.0.114 350.1.13.10 4.2.7.2.686 [id number] 134 [id number] [facility] 2021-10-16 09:00:00 2021-10-16 09:00:00 Outpatient R UNKNOWN, ATTENDING [facility] [id number] [facility] 2021-10-15 18:20:00 2021-10-15 18:20:00 Outpatient R SAMMIE CHUNG [facility] [id number] [facility] 2021-09-30 00:00:00 2021-09-30 00:00:00 Patient Secure Ryan Cedillo [facility] 1.2.840.114 350.1.13.10 4.2.7.2.686 [id number] 134 [id number] [facility] 2021-09-21 03:45:00 2021-09-22 11:05:00 Inpatient P RYAN LU [facility] [id number] [facility] 2021-09-21 03:45:00 2021-09-22 11:05:00 Hospital Encounter Paul Alonso Megan [facility] 1.2.840.114 350.1.13.10 4.2.7.2.686 [id number] [facility] 2021-09-22 00:00:00 2021-09-22 00:00:00 Telephone Ryan Lu [facility] 1.2.840.114 350.1.13.10 4.2.7.2.686 [id number] 134 [id number] [facility] 2021-09-22 00:00:00 2021-09-22 00:00:00 Telephone Ryan Lu [facility] 1.2.840.114 350.1.13.10 4.2.7.2.686 [id number] 134 [id number] [facility] 2021-09-21 13:00:00 2021-09-21 13:00:00 Outpatient R RYAN LU [facility] [id number] [facility] 2021-09-20 11:46:00 2021-09-20 15:40:00 Outpatient P RYAN LU [facility] [id number] [facility] 2021-09-20 11:46:00 2021-09-20 15:40:00 Hospital Encounter Ryan Lu [facility] 1.2.840.114 350.1.13.10 4.2.7.2.686 [id number] [facility] 2021-09-20 00:00:00 2021-09-20 00:00:00 Telephone Ryan Lu [place] [facility] 1.2.840.114 350.1.13.10 4.2.7.2.686 [id number] 134 [id number] [facility] 2021-09-20 00:00:00 2021-09-20 00:00:00 Patient Secure Aixa Morales [facility] 1.2840.114 350.1.13.10 4.2.7.2.686 [id number] 134 [id number] [facility] 2021-09-19 13:45:00 2021-09-19 14:00:00 Laboratory Only Only, Ang Db Test Evaristo [facility] 1.2840.114 350.1.13.10 4.2.7.2.686 [id number] [facility] 2021-09-19 13:45:00 2021-09-19 13:45:00 Outpatient R KONG WATERS [facility] [id number] [facility] 2021-09-14 08:00:00 2021-09-14 08:30:36 [facility] [id number] [facility] 2021-09-14 08:00:00 2021-09-14 08:30:36 Routine Visit Fran Alejandro [facility] 1.2.840.114 350.1.13.10 4.2.7.2.686 [id number] 134 [id number] [facility] 2021-09-13 00:00:00 2021-09-13 00:00:00 Refill Aly Ryan [facility] 1.840.114 350.1.13.10 4.2.7.2.686 [id number] 134 [id number] [facility] 2021-09-07 08:00:00 2021-09-07 08:53:20 Outpatient R ALY RYAN [facility] [id number] [facility] 2021-09-07 08:00:00 2021-09-07 08:53:20 Routine Visit Aly Ryan [facility] 1.0.114 350.1.13.10 4.2.7.2.686 [id number] 134 [id number] [facility] 2021-09-06 15:30:00 2021-09-06 16:00:00 Physical Fitness Trainer Visit 2, [facility] Us Room Maame Hogan [facility] 1.2840.114 350.1.13.10 4.2.7.2.686 [id number] [facility] 2021-09-06 15:30:00 2021-09-06 15:30:00 Outpatient P [facility] [id number] [facility] 2021-09-06 15:30:00 2021-09-06 15:30:00 Outpatient P MAAME HOGAN [facility] [id number] [facility] 2021-09-06 10:30:00 2021-09-06 10:30:00 Outpatient R [facility] [id number] [facility] 2021-09-06 00:00:00 2021-09-06 00:00:00 Patient Secure Msg Aly [facility] 1.20.114 350.1.13.10 4.2.7.2.686 [id number] 134 [id number] [facility] 2021-09-03 00:00:00 2021-09-03 00:00:00 Patient Secure Msg Ryan Lu [facility] 1.2.840.114 350.1.13.10 4.2.7.2.686 [id number] 134 [id number] [facility] 2021-09-03 00:00:00 2021-09-03 00:00:00 [facility] 1.2.840.114 350.1.13.10 4.2.7.2.686 [id number] 134 [id number] [facility] 2021-09-03 00:00:00 2021-09-03 00:00:00 Patient Secure Msg Janessajoshdavy [facility] 1.2.840.114 350.1.13.10 4.2.7.2.686 [id number] 134 [id number] [facility] 2021-09-01 10:45:00 2021-09-01 16:34:56 Out[facility] [id number] [facility] 2021-09-01 10:45:00 2021-09-01 16:34:56 Routine Visit Fran Alejandro [facility] 1.2.840.114 350.1.13.10 4.2.7.2.686 [id number] 134 [id number] [facility] 2021-09-01 00:00:00 2021-09-01 00:00:00 Patient Secure g Ryan Lu [facility] 1.2.840.114 350.1.13.10 4.2.7.2.686 [id number] 134 [id number] [facility] 2021-08-31 10:00:00 2021-08-31 12:08:15 Outpatient R FRAN ALEJANDRO, [facility] [id number] [facility] 2021-08-31 10:00:00 2021-08-31 12:08:15 [facility]..114 350.1.13.10 4.2.7.2.686 [id number] 134 [id number] [facility] 2021-08-31 11:30:00 2021-08-31 11:45:00 Physical Fitness Trainer Visit Lab, Esequiel [facility]ozada [facility] 1.840.114 350.1.13.10 4.2.7.2.686 [id number] [facility] 2021-08-26 08:00:00 2021-08-26 08:00:00 Outpatient R RYAN LU [facility] [id number] [facility] 2021-08-24 16:00:00 2021-08-24 16:17:28 Outpatient R RYAN LU [facility] [id number] [facility] 2021-08-24 16:00:00 2021-08-24 16:17:28 Routine Visit Ryan Lu [facility] 1..114 350.1.13.10 4.2.7.2.686 [id number] 134 [id number] [facility] 2021-08-24 00:00:00 2021-08-24 00:00:00 Orders Only Doctor Unassigned, Dimock [facility] 1..114 350.1.13.10 4.2.7.2.686 [id number] [facility] 2021-08-13 10:30:00 2021-08-13 11:23:10 [facility] [id number] [facility] 2021-08-13 10:30:00 2021-08-13 11:23:10 Routine Visit Fran Alejandro [facility] 1.20.114 350.1.13.10 4.2.7.2.686 [id number] 134 [id number] [facility] 2021-08-02 15:15:00 2021-08-02 15:47:41 Outpatient MEME COBIAN [facility] [id number] [facility] 2021-08-02 15:15:00 2021-08-02 15:47:41 Physical Fitness Trainer Visit Ultrasound, Esequiel-Ryan Diaz George R [facility] STATISTICAL TYPIST [facility] 1.2.114 350.1.13.10 4.2.7.2.686 [id number] [facility] 2021-08-02 13:15:00 2021-08-02 13:31:18 Routine Visit Jem Lun [facility] 1.20.114 350.1.13.10 4.2.7.2.686 [id number] 134 [id number] [facility] 2021-08-02 00:00:00 2021-08-02 00:00:00 Patient Secure Msg Aly Ryan [facility] 1.20.114 350.1.13.10 4.2.7.2.686 [id number] 134 [id number] [facility] 2021-07-27 00:00:00 2021-07-27 00:00:00 Patient Secure Msg Irma Allison [facility] 1.2.114 350.1.13.10 4.2.7.2.686 [id number] 134 [id number] [facility] 2021-07-19 13:00:00 2021-07-19 13:30:54 Outpatient R RYAN LU [facility] [id number] [facility] 2021-07-19 13:00:00 2021-07-19 13:30:54 Routine Visit Ryan Lu [facility] 1..114 350.1.13.10 4.2.7.2.686 [id number] 134 [id number] [facility] 2021-07-08 10:00:00 2021-07-08 10:00:00 Outpatient R RYAN LU [facility] [id number] [facility] 2021-06-30 12:26:00 2021-06-30 15:10:00 Outpatient P RACHNA KITTY [facility] [id number] [facility] 2021-06-30 12:26:00 2021-06-30 15:10:00 Hospital Encounter Ryan LuKitty [facility] 1.84.114 350.1.13.10 4.2.7.2.686 [id number] [facility] 2021-06-24 00:00:00 2021-06-24 00:00:00 Patient Secure Msg Aly Ryan [facility] 1.84.114 350.1.13.10 4.2.7.2.686 [id number] 134 [id number] [facility] 2021-06-23 10:00:00 2021-06-23 10:00:00 Outpatient R [facility] [id number] [facility] 2021-06-23 08:20:00 2021-06-23 08:35:00 Physical Fitness Trainer Visit Lab, Esequiel - Db Aly [facility] 1.840.114 350.1.13.10 4.2.7.2.686 [id number] 353 [id number] [facility] 2021-06-23 08:20:00 2021-06-23 08:20:00 Outpatient R RYAN LU [facility] [id number] [facility] 2021-06-22 08:15:00 2021-06-22 08:15:00 Outpatient R RYAN LU [facility] [id number] [facility] 2021-06-22 00:00:00 2021-06-22 00:00:00 Patient Secure Msg Aly [facility] 1.2.840.114 350.1.13.10 4.2.7.2.686 [id number] 134 [id number] [facility] 2021-06-22 00:00:00 2021-06-22 00:00:00 Letter (Out) Aly [facility] 1.2.840.114 350.1.13.10 4.2.7.2.686 [id number] 134 [id number] [facility] 2021-06-22 00:00:00 2021-06-22 00:00:00 Telephone Aly Ryan [facility] 1.2.840.114 350.1.13.10 4.2.7.2.686 [id number] 134 [id number] [facility] 2021-06-17 13:15:00 2021-06-17 13:59:40 Outpatient R RYAN LU [facility] [id number] [facility] 2021-06-17 13:15:00 2021-06-17 13:59:40 Routine Visit Ryan Lu [facility] 1.2.840.114 350.1.13.10 4.2.7.2.686 [id number] 134 [id number] [facility] 2021-05-28 11:30:00 2021-05-28 11:30:00 Outpatient JOHNNY HEATON [facility] [id number] [facility] 2021-05-28 11:30:00 2021-05-28 11:30:00 Imm/Inj Visit Nurse, Adc Pob Immunizatio Johnny Morales [facility] 1..840.114 350.1.13.10 4.2.7.2.686 [id number] [facility] 2021-05-28 00:00:00 2021-05-28 00:00:[address] [facility] 1.840.114 350.1.13.10 4.2.7.2.686 [id number] [facility] 2021-05-27 20:45:00 2021-05-27 20:45:00 Outpatient KONG ESPOSITO [facility] [id number] [facility] 2021-05-27 20:45:00 2021-05-27 20:45:00 Laboratory Only Only, Ang Db Test [place] [facility] 1.840.114 350.1.13.10 4.2.7.2.686 [id number] [facility] 2021-05-27 11:00:00 2021-05-27 11:00:00 Outpatient JOHNNY HEATON [facility] [id number] [facility] 2021-05-27 08:15:00 2021-05-27 08:15:00 Outpatient RYAN JANE [facility] [id number] [facility] 2021-05-25 09:30:00 2021-05-25 09:30:00 Routine Visit eBbe Georges [facility] 1.840.114 350.1.13.10 4.2.7.2.686 [id number] 134 [id number] [facility] 2021-05-25 09:30:00 2021-05-25 08:57:46 Outpatient BEBE SANTOS [facility] [id number] [facility] 2021-05-25 09:30:00 2021-05-25 08:57:46 Outpatient R BEBE GEORGES [facility] [id number] [facility] 2021-05-25 00:00:00 2021-05-25 00:00:00 Patient Secure Bebe Ricardo [facility] 1..114 350.1.13.10 4.2.7.2.686 [id number] 134 [id number] [facility] 2021-05-19 13:30:00 2021-05-19 14:30:00 Physical Fitness Trainer Visit Ultrasound, Lucy Faust [facility] STATISTICAL TYPIST [facility] 1..114 350.1.13.10 4.2.7.2.686 [id number] [facility] 2021-05-19 13:30:00 2021-05-19 13:30:00 Outpatient P LUCY VAZ [facility] [id number] [facility] 2021-05-18 11:15:00 2021-05-18 11:15:00 Outpatient R ALY RYAN [facility] [id number] [facility] 2021-05-12 19:30:00 2021-05-12 19:30:00 Outpatient R UNKNOWN, ATTENDING [facility] [id number] [facility] 2021-05-12 11:00:00 2021-05-12 11:00:00 Outpatient P [facility] [id number] [facility] 2021-05-11 00:00:00 2021-05-11 00:00:00 Patient Secure Ryan Cedillo [facility] 1..114 350.1.13.10 4.2.7.2.686 [id number] 134 [id number] [facility] 2021-05-11 00:00:00 2021-05-11 00:00:00 Telephone Rayn Lu [facility] 1.2.840.114 350.1.13.10 4.2.7.2.686 [id number] 134 [id number] [facility] 2021-05-10 11:15:00 2021-05-10 11:15:00 Outpatient R RYAN LU [facility] [id number] [facility] 2021-04-15 00:00:00 2021-04-15 00:00:00 Telephone Ryan Lu [place] 1.114 350.1.13.10 4.2.7.2.686 [id number] 134 [id number] [facility] 2021-04-12 14:30:00 2021-04-12 15:46:31 Outpatient R RYAN LU [facility] [id number] [facility] 2021-04-12 14:08:27 2021-04-12 15:46:31 Initial Visit Ryan Lu [facility] 1.114 350.1.13.10 4.2.7.2.686 [id number] 134 [id number] [facility] 2021-04-08 00:00:00 2021-04-08 00:00:00 Orders Only Doctor Unassigned, Dimock [facility] 1.0.114 350.1.13.10 4.2.7.2.686 [id number] [facility] 2021-04-05 00:00:00 2021-04-05 00:00:00 Telephone Paul Alonso [facility] 1..114 350.1.13.10 4.2.7.2.686 [id number] 134 [id number] [facility] 2021-03-26 00:00:00 2021-03-26 00:00:00 Case Management Deemtrius Paul [facility] 1..114 350.1.13.10 4.2.7.2.686 [id number] 134 [id number] [facility] 2021-03-26 00:00:00 2021-03-26 00:00:00 Orders Only Doctor Unassigned, Dimock [facility] 1.2.840.114 350.1.13.10 4.2.7.2.686 [id number] [facility] 2021-03-22 00:00:00 2021-03-22 00:00:00 Telephone Paul Alonso [facility] 1.2.840.114 350.1.13.10 4.2.7.2.686 [id number] 134 [id number] [facility] 2021-03-16 12:56:40 2021-03-16 13:37:38 Physical Fitness Trainer Visit 2, [facility] aPul Alonso [facility] 1.2.840.114 350.1.13.10 4.2.7.2.686 [id number] [facility] 2021-03-16 13:00:00 2021-03-16 13:00:00 Outpatient R PAUL ALONSO [facility] [id number] [facility] 2021-03-12 09:15:00 2021-03-12 09:15:00 Outpatient R [facility] [id number] [facility] 2021-03-11 10:00:00 2021-03-11 12:02:12 Outpatient R PAUL ALONSO [facility] [id number] [facility] 2021-03-11 09:52:44 2021-03-11 12:02:12 Initial Visit Paul Alonso [facility] 1.2.840.114 350.1.13.10 4.2.7.2.686 [id number] [facility] 2021-03-11 00:00:00 2021-03-11 00:00:00 Orders Only Doctor Unassigned, [place] [facility] 1.2.840.114 350.1.13.10 4.2.7.2.686 [id number] [id number] [facility] 2021-02-25 12:07:00 2021-02-25 13:06:00 Emergency Corrine Macias [facility] 1.2.840.114 350.1.13.10 4.2.7.2.686 [id number] [facility] 2021-02-25 12:07:00 2021-02-25 13:06:00 [facility] [id number] [facility] 2021-02-25 00:00:00 2021-02-25 00:00:00 Orders Only Doctor Unassigned, [place] [facility] 1.2840.114 350.1.13.10 4.2.7.2.686 [id number] [facility] 2021-02-12 16:49:00 2021-02-12 20:48:00 Emergency X PATRICIO BLAS [facility] ERT [id number] [facility] 2021-02-12 16:49:00 2021-02-12 20:48:00 Emergency BlasPatricio mccormack [facility] 1.2840.114 350.1.13.10 4.2.7.2.686 [id number] [facility] 2021-02-12 00:00:00 2021-02-12 00:00:00 Orders Only Doctor Unassigned, [place] [facility] 1.2.840.114 350.1.13.10 4.2.7.2.686 [id number] [facility] 2020-08-06 11:45:00 2020-08-06 11:45:00 Outpatient [facility] [id number] [facility] 2019-11-11 00:00:00 2019-11-11 00:00:00 Letter (Out) Yon Pichardo [facility] STATISTICAL TYPIST [facility] 1.2840.114 350.1.13.10 4.2.7.2.686 [id number] [facility] 2019-10-02 10:00:00 2019-10-02 10:00:00 Outpatient R YON PICHARDO [facility] [id number] [facility] 2019-09-20 16:30:00 2019-09-20 16:30:00 Outpatient R DELVIS SHEA [facility] [id number] [facility] 2019-09-20 13:36:02 2019-09-20 13:51:02 Telemedici ne Visit Delvis Shea [facility] [id number] [facility] 2019-09-11 07:35:20 2019-09-11 11:19:46 Telemedici ne Visit Yon Pichardo [facility]ISTICAL TYPIST [facility] [id number] [facility] 2019-09-11 10:45:00 2019-09-11 10:45:00 Outpatient R YON PICHARDO [facility] [id number] [facility] 2019-09-02 00:00:00 2019-09-02 00:00:00 Telephone Yon Pichardo [facility] STATISTICAL TYPIST [facility] [id number] [facility] 2019-08-11 16:40:00 2019-08-11 16:40:00 Outpatient BEBE SANTOS [facility] [id number] [facility]
--- NOTE | 2024-05-31 12:25 | EDPHYS ---
Physician Documentation [facility] Name: Quin De La Torre Age: 34 yrs Sex: Female : 1990 Arrival Date: 05/31/2024 Time: 11:41 Bed 10 Private MD: ED Physician Rahul Zuñiga HPI: 05/31 14:22 This 34 yrs old Female presents to ER via Ambulatory with complaints of Ear Pain. rt 14:22 Patient presents to the ED with left ear pain for about 4 days. Reports mild nasal rt congestion. Denies other acute complaints at this time, symptoms are mild in severity, no other aggravating alleviating factors.. 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 - Infectious Disease History:: Denies. - Social history:: Smoking status: Patient denies any tobacco usage or history of. - Family history:: not pertinent. ROS: 14:22 Constitutional: Negative for fever, chills, and weight loss, Cardiovascular: Negative rt for chest pain, palpitations, and edema, Respiratory: Negative for shortness of breath, cough, wheezing, and pleuritic chest pain, Abdomen/GI: Negative for abdominal pain, nausea, vomiting, diarrhea, and constipation, MS/Extremity: Negative for injury and deformity, Skin: Negative for injury, rash, and discoloration, Neuro: Negative for headache, weakness, numbness, tingling, and seizure, 14:22 ENT: Positive for ear pain, rhinorrhea, Exam: 14:22 Constitutional: This is a well developed, well nourished patient who is awake, alert, rt and in no acute distress. Head/Face: Normocephalic, atraumatic. Chest/axilla: Normal chest wall appearance and motion. Nontender with no deformity. No lesions are appreciated. Cardiovascular: Regular rate and rhythm with a normal S1 and S2. No gallops, murmurs, or rubs. Normal PMI, no JVD. No pulse deficits. Respiratory: Lungs have equal breath sounds bilaterally, clear to auscultation and percussion. No rales, rhonchi or wheezes noted. No increased work of breathing, no retractions or nasal flaring. Abdomen/GI: Soft, non-tender, with normal bowel sounds. No distension or tympany. No guarding or rebound. No evidence of tenderness throughout. 14:22 ENT: Right TM is bulging, left TM is bulging, erythematous, no signs of mastoiditis, otitis externa. Vital Signs: 12:07 BP 113 / 67; Pulse 60; Resp 16; Temp 98(O); Pulse Ox 100% on R/A; Weight 88.45 kg; hb Height 5 ft. 9 in. ; Pain 8/10; 12:37 BP 117 / 84; Pulse 82; Resp 17; Pulse Ox 100% ; ap3 12:07 Body Mass Index 28.80 (88.45 kg, 175.26 cm) hb 12:07 Pain Scale: Adult hb MDM: 12:18 Medical Screening Exam initiated rt 14:22 Differential diagnosis: otitis media, otitis externa. Data reviewed: vital signs, rt nurses notes. Counseling: I had a detailed discussion with the patient and/or guardian regarding the historical points, exam findings, and any diagnostic results supporting the discharge/admit diagnosis, the need for outpatient follow up, to return to the emergency department if symptoms worsen or persist or if there are any questions or concerns that arise at home. Administered Medications: No medications were administered Disposition Summary: 05/31/24 12:24 Discharge Ordered Notes: Location: Home rt Problem: new rt Symptoms: have improved rt Condition: Stable rt Diagnosis - Acute serous otitis media, left ear rt Followup: rt - With: Private Physician - When: 2 - 3 days - Reason: Discharge Instructions: - Discharge Summary Sheet rt - Otitis Media, Adult rt Forms: - Medication Reconciliation Form rt - Antibiotic Education rt - Prescription Opioid Use rt - Patient Portal Instructions rt - Leadership Thank You Letter rt Prescriptions: - Amoxicillin 875 mg Oral Tablet - take 1 tablet ORAL route every 12 hours for 10 days; 20 tablet; Refills: 0, rt Product Selection Permitted Signatures: Nara Rodriguez RN RN Rahul Zuñiga MD MD rt
--- NOTE | 2024-05-31 12:25 | ER ---
Nurse's Notes [facility] Name: Quin De La Torre Age: 34 yrs Sex: Female : 1990 Arrival Date: 05/31/2024 Time: 11:41 Bed 10 Private MD: Diagnosis: Acute serous otitis media, left ear Presentation: 05/31 12:07 Chief complaint: Left ear pain x 4 days. Coronavirus screen: At this time, the client hb does not indicate any symptoms associated with coronavirus-19. Ebola Screen: No symptoms or risks identified at this time. Initial Sepsis Screen: Does the patient meet any 2 criteria? No. Patient's initial sepsis screen is negative. Does the patient have a suspected source of infection? No. Patient's initial sepsis screen is negative. Risk Assessment: Do you want to hurt yourself or someone else? Patient reports no desire to harm self or others. Onset of symptoms was May 27, 2024. 12:07 Method Of Arrival: Ambulatory hb 12:07 Acuity: DORI 4 hb Triage Assessment: 12:36 General: Appears in no apparent distress. Behavior is calm, cooperative, appropriate ap3 for age. Pain: Complains of pain in left ear. EENT: Reports pain in left ear. 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 - Infectious Disease History:: Denies. - Social history:: Smoking status: Patient denies any tobacco usage or history of. - Family history:: not pertinent. Screenin:36 [facility] ED Fall Risk Assessment (Adult) History of falling in the last 3 months, ap3 including since admission No falls in past 3 months (0 pts) Confusion or Disorientation No (0 pts) Intoxicated or Sedated No (0 pts) Impaired Gait No (0 pts) Mobility Assist Device Used No (0 pt) Altered Elimination No (0 pt) Score/Fall Risk Level 0 - 2 = Low Risk Oriented to surroundings, Maintained a safe environment, Educated pt \T\ family on fall prevention, incl call for assistance when getting out of bed, Assessed \T\ reinforced patient's understanding of fall precautions, Hourly rounding (assess needs \T\ fall precautionary measures) done, Used ambulatory aids as needed (educated on \T\ assisted with), Used gait belt as appropriate. Abuse screen: Denies threats or abuse. Nutritional screening: No deficits noted. Tuberculosis screening: No symptoms or risk factors identified. Vital Signs: 12:07 BP 113 / 67; Pulse 60; Resp 16; Temp 98(O); Pulse Ox 100% on R/A; Weight 88.45 kg; hb Height 5 ft. 9 in. ; Pain 8/10; 12:37 BP 117 / 84; Pulse 82; Resp 17; Pulse Ox 100% ; ap3 12:07 Body Mass Index 28.80 (88.45 kg, 175.26 cm) hb 12:07 Pain Scale: Adult hb ED Course: 11:43 Patient arrived in ED. mr 11:49 Rahul Zuñiga MD is Attending Physician. rt 12:07 Triage completed. hb 12:08 Arm band placed on. hb 12:37 Patient has correct armband on for positive identification. Provided Education on: ap3 discharge instructions. 12:37 No provider procedures requiring assistance completed. Patient did not have IV access ap3 during this emergency room visit. Administered Medications: No medications were administered Medication: 12:37 VIS not applicable for this client. ap3 Outcome: 12:24 Discharge ordered by MD. rt 12:37 Discharged to home ambulatory, ap3 12:37 Condition: good 12:37 Discharge instructions given to patient, Instructed on discharge instructions, follow up and referral plans. medication usage, Demonstrated understanding of instructions, follow-up care, medications, Prescriptions given X 1, 12:38 Patient left the ED. ap3 Signatures: Mera Dunlap, Reg Reg mr Nara Rodriguez RN TAJ Damaris Maxwell RN RN ap3 Rahul Zuñiga MD MD rt
[2024-05-31 13:14] VITALS: TEMP 98; O2SAT 100
[2024-05-31 13:16] VITALS: BP 117/84
== END 2024-05-31 12:38 | disposition home or self-care (01) ==
LOC: ER 11:41
DX: H65.02 Acute serous otitis media, left ear (principal)
CPT/HCPCS: 99283

== ENCOUNTER 2024-08-04 14:46 | Emergency (ER) | payer OTHER ==
--- OUTSIDE RECORDS SUMMARY | 2024-08-04 14:51 | XMS REPORT | Continuity of Care Document ---
Author Name Unknown Address [address] [facility] [address] [place] [address] [facility] Address [address] [facility] [address] [place] [address] Care Team Providers Care Aws Solution Architect Name Role Phone Pcp, Patient Does Not Have A Primary Care Physic aviva RYAN LU Attending Clinician Unavailable LEEANN TOMPKINS Attending Clinician Unavailab le LAB90 Attending Clinician Unavailable MD THOMAS Attending Clinician Unavailab le [email or web address]_S Attending Clinician UnavailFRAN [place] Attending Clinician UnavailFRAN [place] Attending Clinician UnavailRyan Reza MD Attending Clinician Unavailable Doctor Unassigned, [place] Attending Clinician Aixa Mac RN Attending Clinician Unavail able Pob, Adc Lab Main Attending Clinician Unavailabl e Only, Adc Test Attending Clinician Unavailable Lab, Ang - Db Attending Clinician Unavailable Case RN, Irma A Attending Clinician Unavailable UNKNOWN, ATTENDING Attending Clinician Unavailab SAMMIE Hanson Attending Clinician Unavailjohn Alonso MD, Paul Morales Attending Clinician [phone] Only, Ang Db Test Attending Clinician Unavailjohn Waters PRACTICE MANAGER, Kong Attending Clinician [phone] KONG WATERS Attending Clinician Unavailable 2, [facility] Usg Room Attending Clinician Unavaildorinda Horne MD, Jerry Attending Clinician + MAAME ARENAS Attending Clinician Unav ailable MEME ONEAL Attending Clinician Unavailable Ultrasound, [facility] Attending Clinician Unavaila billie Oneal MD, Meme Sandoval Attending Clinician [phone] ADUMKITTY Attending Clinician Unavailable Kitty Lozoya MD Attending Clinician [phone] JOHNNY DENNIS Attending Clinician Unavail able Nurse, [facility] Pob Immunization Attending Clinician Unavailable Johnny Dennis DO Attending Clinician [phone] Dunia Tay RN Attending Clinician Unavailable Bebe Georges PA-C Attending Clinician [phone] BEBE GEORGES Attending Clinician Unavailable Lucy Vaz MD Attending Clinician + LUCY VAZ Attending Clinician Unav ailable 2, [facility] Lab Attending Clinician Unavailable PAUL ALONSO Attending Clinician Unavailable Corrine Macias MD Attending Clinician [phone] CORRINE MACIAS Attending Clinician Unavailable PATRICIO BLAS Attending Clinician Unavailable Patricio Tyler S Attending Clinician [phone] Akinlore WHYon ONEILL Attending Clinician + YON PICHARDO Attending Clinician Unavail able DELVIS SHEA Attending Clinician UnavailDelvis Aguillon MD Attending Clinician [phone] RYAN LU Admitting Clinician Unavailable [email or web address]_Kadiyala_S Admitting Clinician UnavailRyan Reza MD Admitting Clinician [phone] PAUL ALONSO Admitting Clinician Unavailable Paul Alonso MD Admitting Clinician PATRICIO BLAS Admitting Clinician Unavailable Payers Payer Name Policy Type Policy Number Effective Date Expirati on Date Source [employer] MEDICAID [id number] 2021 00:00:00 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 Elevated BP without diagnosis of hypertensi on Elevated BP without diagnosis of hypertensi on Disease Active 2020-05 00:00: 00 [facility] Sterilizat ion consult Sterilizat ion consult Disease Active 09-10 00:00: 00 [facility] Heart murmur Heart murmur Disease Active 2017-05 00:00: 00 Overview: Formattin g of this note might be different from the original. Reports history has a PCP she currently sees [facility] Multiparit y Multiparit y Disease Active 2017-05 00:00: 00 [facility] Over weight Over weight Disease Active 2017-05 00:00: 00 [facility] Allergies, Adverse Reactions, Alerts Allergy Name Allergy Type Status Severity Reaction(s) Onset Date Inactive Date Treating Clinician Comments Source Latex Propensi ty to adverse reaction s Active Rash 2020-05 00:00: 00 Blanca romero LATEX DRUG INGREDI Active Rash 2020-05 00:00: 00 [facility] Latex Propensi ty to adverse reaction s Active Rash 2020-05 00:00: 00 [facility] Adhesive Propensi ty to adverse reaction s Active Rash 2014-05 00:00: 00 Blanca romero ADHESIVE Drug Class Active Rash 2014-05 00:00: 00 [facility] Adhesive Propensi ty to adverse reaction s Active Rash 2014-05 00:00: 00 [facility] Adhesive Propensi ty to adverse reaction s Active Rash 2014-05 00:00: 00 [facility] Social History Social Habit Start [...] Stop Date Source Never smoked tobacco Blanca Bragg External Medications Ordered Medication Name Filled Medication [...] MG oral Tablet 11-21 00:00: 00 Yes [id number] 25mg QD Take 1 tablet (25 mg total) by mouth daily. Blanca romero Semaglutide -JITENDRAGOELISABETH-Daniel ght Management 0.25 MG/0.5ML Subcutaneou s Solution Auto-inject or 11-21 00:00: 00 Yes [id number] .25mg Q1W Inject 0.25 mg into the [...] ed, Routine, Pain (scale 7-10), DSU Recovery [facility] HYDROcodone -acetaminop hen (NORCO 5) 5-325 mg tablet 1 tablet 11-12 14:24: 06 Yes 1{tbl} 1 tablet, Oral, PRN, 1 dose, Starting on Mon11/12/21 at 0924, Until Discontinu ed, Routine, Pain (scale 4-6), DSU Recovery [facility] acetaminoph en (TYLENOL) tablet 325 mg 11-12 14:24: 06 Yes 325mg 325 mg, Oral, PRN, 1 dose, Starting on Mon11/12/21 at 0924, Until Discontinu ed, Routine, Pain (scale 1-3), DSU Recovery [facility] FENTanyl PF (SUBLIMAZE (PF)) injection 25 mcg 11-12 13:52: 08 Yes 25ug 25 mcg, Slow IV Push, Q5MIN PRN, 4 doses, Starting on Mon11/12/21 at 0852, Until Discontinu ed, Routine, Pain (scale 4-6), PACU [facility] HYDROmorphO ne (DILAUDID) injection 0.2 mg 11-12 13:52: 08 Yes .2mg 0.2 mg, Slow IV Push, Q5MIN PRN, 10 doses, Starting on Mon11/12/21 at 0852, Until Discontinu ed, Routine, Pain (scale 7-10), PACU
Us e approved by (Faculty): PACU USE -ANESTHESI A SERVICE-HY DROMORPHON E INJECTIONS [facility] ondansetron (ZOFRAN (PF)) injection 4 mg 11-12 13:52: 08 11-12 14:03 :00 No 4mg 4 mg, Slow IV Push, PRN, 1 dose, Starting on Mon11/12/21 at 0852, Until Mon11/12/21 at 0903, Routine, Nausea and Vomiting (N/V), PACU [facility] water for irrigation irrigation solution 11-12 13:34: 00 11-12 14:57 :32 No PRN, Starting on Mon11/12/21 at 0834, Until Mon11/12/21 at 0957, Routine, Intra-op [facility] bupivacaine -epinephrin e-pf (SENSORCAIN E W/EPINEPHRI NE) 0.25 %-1:200,000 injection 11-12 13:29: 00 11-12 14:57 :32 No PRN, Starting on Mon11/12/21 at 0829, Until Mon11/12/21 at 0957, Routine, Intra-op [facility] lactated ringers IV infusion 1,000 mL 11-12 11:15: 00 11-12 11:18 :00 No 1000mL at 42 mL/hr, 1,000 mL, IV Infusion, ONCE, 1 dose, On Mon11/12/21 at 0615, Routine, DSU Pre-op [facility] ibuprofen 600 mg tablet 11-12 00:00: 00 Yes [id number] 600mg Take 1 tablet by mouth every 6 (six) hours as needed for Pain (scale 1-3). [facility] Omeprazole 20 mg tablet 6-21 00:00: 00 Yes [id number] 20mg Take 1 tablet by mouth daily. [facility] SERTraline (ZOLOFT) 25 mg tablet 17 00:00: 00 Yes [id number] 25mg Take 1 tablet by mouth daily. [facility] hydrocortis one (ANUSOL-HC) 2.5 % rectal cream 09-24 00:00: 00 Yes [id number] Insert into rectum 2 (two) times daily. [facility] vit no.124/iron /folic ( VITAMIN ORAL) 09-22 08:22: 30 09-22 00:00 :00 No [id number] Take by mouth. [facility] phenylephri ne 0.25 % suppository 09-22 00:00: 00 Yes [id number] 102 1{suppo sitory} Insert 1 Suppositor y into rectum 2 (two) times daily. Apply for hemorrhoid s [facility] docusate 100 mg capsule 18 00:00: 00 Yes [id number] 102 200mg Take 2 capsules by mouth once daily as needed for Constipati on. [facility] ibuprofen 600 mg tablet 18 00:00: 00 11-12 00:00 :00 No [id number] 102 600mg Take 1 tablet by mouth every 6 (six) hours as needed (Pain). Take with food or milk. [facility] terconazole 80 mg vaginal suppository 4-29 00:00: 00 09-07 04:59 :00 No [id number] 80mg Insert 1 Suppositor y into vagina at bedtime for [address] [facility] Omeprazole 20 mg tablet 3-24 00:00: 00 09-13 00:00 :00 No [id number] 20mg Take 1 tablet by mouth daily. [facility] Sertraline HCl (Zoloft) 25 MG oral Tablet 07-22 00:00: 00 11-21 00:00 :00 No 25mg QD Take 1 tablet (25 mg total) by mouth daily. Blanca romero vit w/iron fumarate and FA ( VITAMIN WITH MINERALS) tablet 2020-05 00:00: 00 08-02 00:00 :00 No [id number] 1{tbl} Take 1 tablet by mouth daily. [facility] ondansetron (ZOFRAN ODT) 4 mg disintegrat ing tablet 2020-05 008 00:00: 00 06-18 00:00 :00 No [id number] 4mg Take 1 tablet by mouth every 8 (eight) hours as needed for Nausea and Vomiting (N/V). [facility] Immunizations Ordered Immunization Name Filled Immunization Name [...] Mrna-lnp, Andre Protein, Pf Unknown Completed Blanca Vazquez [facility] TDAP Unknown Completed [facility] [...] Injectable, Mdck, Preservative Free, Quadrivalent Unknown Completed Blnaca Bustilloybold - External Influenza Virus Vaccine Unknown Completed [...] Virus Vaccine, Unspecified Formulation Unknown Completed Blanca Seybold - External Tdap- (Boostrix, Adacel) Unknown Completed Blanca Bustilloybold - External Vital Signs Vital Name Observation Time Observation Value Comments S ource Systolic blood pressure 2023-11-22 14:18:00 116 mm[Hg] Blanca Bustilloybo ld - External Diastolic blood pressure 2023-11-22 14:18:00 78 mm[Hg] Blanca Camposo ld - External Heart rate 2023-11-22 14:18:00 80 /min Syed y George - External Body temperature 2023-11-22 14:18:00 36.83 Katty Blanca Bustilloybold - External Respiratory rate 2023-11-22 14:18:00 18 /min Blanca Bustilloybold - External Body height 2023-11-22 14:18:00 172.7 cm Kiana mccormack Seybold - External Body weight 2023-11-22 14:18:00 92.534 kg Kiana mccormack Seybold - External BMI 2023-11-22 14:18:00 31.02 kg/m2 Kiana mccormack Seybold - External Oxygen saturation in Arterial blood by Pulse oximetry 2023-11-22 14:18:00 98 /min Blanca Camposo ld - External Systolic blood pressure 2021-11-12 14:34:00 110 mm[Hg] [facility] Diastolic blood pressure 2021-11-12 14:34:00 73 mm[Hg] [facility] Heart rate 2021-11-12 14:34:00 53 /min [facility] Respiratory rate 2021-11-12 14:34:00 11 /min [facility] Oxygen saturation in Arterial blood by Pulse oximetry 2021-11-12 14:34:00 99 /min [facility] Body temperature 2021-11-12 13:46:00 36.5 Katty [facility] Body height 2021-11-02 15:17:[address] [facility] Body weight 2021-11-02 15:17:[address] [facility] BMI 2021-11-02 15:17:00 27.11 kg/m2 [facility] Systolic blood pressure 2021-11-12 14:34:00 110 mm[Hg] [facility] Diastolic blood pressure 2021-11-12 14:34:00 73 mm[Hg] [facility] Heart rate 2021-11-12 14:34:00 53 /min [facility] Respiratory rate 2021-11-12 14:34:00 11 /min [facility] Oxygen saturation in Arterial blood by Pulse oximetry 2021-11-12 14:34:00 99 /min [facility] Body temperature 2021-11-12 13:46:00 36.5 Katty [facility] Body height 2021-11-02 15:17:[address] [facility] Body weight 2021-11-02 15:17:[address] [facility] BMI 2021-11-02 15:17:00 27.11 kg/m2 [facility] Procedures Procedure Date / Time Performed Performing Clinician Source CPS / APS / FPS 2021-12-03 05:01:00 Doctor Unass igned, [place] [facility] STERILIZATION CONSENT FORM 2021-11-19 05:01:00 Doctor Unassigned, [place] [facility] LAPAROSCOPIC SALPINGECTOMY 2021-11-12 12:28:00 Ryan Lu [facility] DSU PRE-OP 2021-10-25 05:01:00 Doctor Unass igned, [place] [facility] DSU PRE-OP 2021-10-25 05:01:00 Doctor Unass igned, [place] [facility] Encounters Start Date/Time End Date/Time Encounter Type Admission Type Attending Clinicians Care Facility Care Department Encounter ID Source 2021-10-22 14:23:32 Outpatient R FISH, RYAN [facility] 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 2021-06-30 15:31:19 Outpatient P [facility] [id number] [facility] 2024-06-28 00:00:00 2024-06-28 00:00:00 Outpatient LEEANN TOMPKINS BLANCA SCHULTZ [id number] Blanca [facility] 2023-12-28 14:00:00 2023-12-28 14:00:00 Outpatient LEEANN TOMPKINS [facility] SCHULTZ [id number] Blanca [facility] 2023-12-11 09:00:00 2023-12-11 09:00:00 Outpatient LEEANN TOMPKINS BLAN[facility] SCHULTZ [id number] Blanca [facility] 2023-11-23 00:00:00 2023-11-23 00:00:00 Outpatient LEEANN [facility]OMPKINS [facility] [id number] [facility]:00 2023-11-23 00:00:00 Outpatient LEEANN TOMPKINS BLAN[facility] SCHULTZ [id number] Blanca [facility] 2023-11-22 10:15:00 2023-11-22 10:15:00 Outpatient JORGE BLAN[facility] SCHULTZ [id number] Blanca [facility] 2023-11-22 09:30:00 2023-11-22 09:30:00 Outpatient LEEANN TOMPKINS BLANCA SCHULTZ [id number] Blanca [facility] 2023-11-22 00:00:00 2023-11-22 00:00:00 Outpatient LEEANN TOMPKINS [facility] SCHULTZ [id number] [facility]23-[facility]-02 00:00:00 2023-11-02 00:00:00 Outpatient MD BLANCA REYNA [id number] Blanca [facility] 2023-11-02 00:00:00 2023-11-02 00:00:00 Outpatient MD BLANCA REYNA [id number] [facility] 2023-03-04 00:00:00 2023-03-04 00:00:00 Outpatient GC_GCBZW_Ka diyala_S [facility] [id number] [facility] 2022-10-11 13:00:00 2022-10-11 13:00:00 Outpatient R FRAN ALEJANDRO CHERYAL [facility] [id number] [facility] 2022-09-21 00:00:00 2022-09-21 00:00:00 Refill Ryan Lu [facility] 1..840.114 350.1.13.10 4.2.7.2.[id number] [facility] 2022-06-03 00:00:00 2022-06-03 00:00:00 Refill Jem Lun [facility] 1.840.114 350.1.13.10 4.2.7.2.[id number] [facility] 2022-05-18 13:00:00 2022-05-18 13:00:00 Outpatient R [facility] [id number] [facility] 2022-04-05 10:15:00 2022-04-05 10:15:00 Outpatient R FRAN ALEJANDRO CHERYAL [facility] [id number] [facility] 2022-02-23 13:00:00 2022-02-23 13:00:00 Outpatient R [facility] [id number] [facility] 2022-01-25 00:00:00 2022-01-25 00:00:00 Refill Aly Ryan [facility] 1..114 350.1.13.10 4.2.7.2.[id number] [facility] 2021-12-10 00:00:00 2021-12-10 00:00:00 Telephone Aly Ryan [facility] 1..114 350.1.13.10 4.2.7.2.[id number] [facility] 2021-12-03 00:00:00 2021-12-03 00:00:00 Orders Only Doctor Unassigned, [place] [facility] 1.840.114 350.1.13.10 4.2.7.2.[id number] [facility] 2021-11-30 15:00:00 2021-11-30 15:00:00 Outpatient R ALYJEMN [facility] [id number] General acute hospital 2021-11-19 00:00:00 2021-11-19 00:00:00 Orders Only Doctor Unassigned, [place] [facility] 1.840.114 350.1.13.10 4.2.7.2.[id number] [facility] 2021-11-18 15:00:00 2021-11-18 15:00:00 Outpatient R ALYJEMN [facility] [id number] General acute hospital 2021-11-18 15:00:00 2021-11-18 15:00:00 Outpatient R RYAN LU [facility] [id number] General acute hospital 2021-11-18 15:00:00 2021-11-18 15:00:00 Outpatient R RYAN LU [facility] [id number] General acute hospital 2021-11-16 00:00:00 2021-11-16 00:00:00 Patient Secure Msg Ryan Lu [facility] 1.114 350.1.13.10 4.2.7.2.[id number] [facility] 2021-11-12 07:15:00 2021-11-12 09:50:00 Surgery Ryan Lu [facility] 1.2.840.114 350.1.13.10 4.2.7.2.[id number] 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 2021-11-11 00:00:00 2021-11-11 00:00:00 Patient Secure Aixa Morales [facility] 1.2.840.114 350.1.13.10 4.2.7.2.[id number] [facility] 2021-11-10 09:00:00 2021-11-10 09:15:00 Sanitation Associate Visit Pob, Adc Lab Main Aly Ryan [facility] 1.2.840.114 350.1.13.10 4.2.7.2.[id number] [facility] 2021-11-10 08:45:00 2021-11-10 09:00:00 Laboratory Only Only, Adc Test Ryan Lu [facility] 1.2.840.114 350.1.13.10 4.2.7.2.[id number] [facility] 2021-11-10 08:45:00 2021-11-10 08:45:00 Outpatient R RYAN LU [facility] [id number] General acute hospital 2021-11-10 08:30:00 2021-11-10 08:45:00 Sanitation Associate Visit Lab, Ang - Db [facility] 1.840.114 350.1.13.10 4.2.7.2.[id number] [facility] 2021-11-10 00:00:00 2021-11-10 00:00:00 Orders Only Doctor Unassigned, [place] [facility] 1.840.114 350.1.13.10 4.2.7.2.[id number] [facility] 2021-10-23 00:00:00 2021-10-23 00:00:00 Refill Jem Lun [facility] 1..114 350.1.13.10 4.2.7.2.[id number] 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 2021-10-21 11:00:00 2021-10-21 11:27:40 Outpatient R RYAN LU [facility] [id number] General acute hospital 2021-10-21 11:00:00 2021-10-21 11:27:40 Routine Visit Aly Ryan [facility] 1..114 350.1.13.10 4.2.7.2.[id number] [facility] 2021-10-17 00:00:00 2021-10-17 00:00:00 Refill Aly Ryan [facility] 1.0.114 350.1.13.10 4.2.7.2.[id number] [facility] 2021-10-16 09:00:00 2021-10-16 09:00:00 Outpatient R CARLEE, CLAUDE [facility] [id number] [facility] 2021-10-15 18:20:00 2021-10-15 18:20:00 Outpatient R SAMMIE CHUNG [facility] [id number] [facility] 2021-09-30 00:00:00 2021-09-30 00:00:00 Patient Secure Msg Ryan Lu [facility] 1.2.840.114 350.1.13.10 4.2.7.2.[id number] [facility] 2021-09-21 03:45:00 2021-09-22 11:05:00 Inpatient P ALY RYAN [facility] [id number] [facility] 2021-09-21 03:45:00 2021-09-22 11:05:00 Hospital Encounter Alonso, Paul Morales Ryan Lu [facility] 1.2.840.114 350.1.13.10 4.2.7.2.[id number] [facility] 2021-09-22 00:00:00 2021-09-22 00:00:00 Telephone Ryan Lu [facility] 1.2.840.114 350.1.13.10 4.2.7.2.[id number] [facility] 2021-09-22 00:00:00 2021-09-22 00:00:00 Telephone Ryan Lu [facility] 1.2.840.114 350.1.13.10 4.2.7.2.[id number] [facility] 2021-09-21 13:00:00 2021-09-21 13:00:00 Outpatient R RYAN LU [facility] [id number] General acute hospital 2021-09-20 11:46:00 2021-09-20 15:40:00 Outpatient P RYAN LU [facility] [id number] [facility] 2021-09-20 11:46:00 2021-09-20 15:40:00 Hospital Encounter Ryan Lu [facility] 1.2.840.114 350.1.13.10 4.2.7.2.[id number] [facility] 2021-09-20 00:00:00 2021-09-20 00:00:00 Telephone Ryan Lu [facility] 1.2.840.114 350.1.13.10 4.2.7.2.[id number] [facility] 2021-09-20 00:00:00 2021-09-20 00:00:00 Patient Secure MsAixa Joy [facility] PROFESS[facility] NAL [facility]ILD[facility] 1.2.840.114 350.1.13.10 4.2.7.2.[id number] [facility] 2021-09-19 13:45:00 2021-09-19 14:00:00 Laboratory Only Only, Ang Db Test Evaristo Kong [facility] 1.2.840.114 350.1.13.10 4.2.7.2.[id number] [facility] 2021-09-19 13:45:00 2021-09-19 13:45:00 Outpatient R KONG WATERS [facility] [id number] [facility] 2021-09-14 08:00:00 2021-09-14 08:30:36 Outpatient R FRAN ALEJANDRO CHERYAL [facility] [id number] [facility] 2021-09-14 08:00:00 2021-09-14 08:30:36 Routine Visit Fran Alejandro [facility] 1.2.840.114 350.1.13.10 4.2.7.2.[id number] [facility] 2021-09-13 00:00:00 2021-09-13 00:00:00 Refill Ryan Lu [facility] 1.2.840.114 350.1.13.10 4.2.7.2.[id number] [facility] 2021-09-07 08:00:00 2021-09-07 08:53:20 Outpatient R ALY RYAN [facility] [id number] General acute hospital 2021-09-07 08:00:00 2021-09-07 08:53:20 Routine Visit Aly Ryan [facility] 1.2.840.114 350.1.13.10 4.2.7.2.[id number] [facility] 2021-09-06 15:30:00 2021-09-06 16:00:00 Sanitation Associate Visit 2, [facility] Room Maame Cade [facility] 1.2.840.114 350.1.13.10 4.2.7.2.[id number] [facility] 2021-09-06 15:30:00 2021-09-06 15:30:00 Outpatient P [facility] [id number] [facility] [facility] 2021-[facility]-06 15:30:00 2021-09-06 15:30:00 Outpatient P MAAME CADE [facility] [id number] [facility] 2021-09-06 10:30:00 2021-09-06 10:30:00 Outpatient R [facility] [id number] [facility] 2021-09-06 00:00:00 2021-09-06 00:00:00 Patient Secure Msg Aly [facility] 1.2.840.114 350.1.13.10 4.2.7.2.[id number] [facility] 2021-09-03 00:00:00 2021-09-03 00:00:00 Patient Secure Msg Aly Ryan [facility] 1.2.840.114 350.1.13.10 4.2.7.2.[id number] [facility] 2021-09-03 00:00:00 2021-09-03 00:00:00 [facility] 1.2.840.114 350.1.13.10 4.2.7.2.[id number] [facility] 2021-09-03 00:00:00 2021-09-03 00:00:00 Patient Secure Msg Inge [facility] 1.2.840.114 350.1.13.10 4.2.7.2.[id number] [facility] 2021-09-01 10:45:00 2021-09-01 16:34:56 [facility] [id number] [facility] 2021-09-01 10:45:00 2021-09-01 16:34:56 Routine Visit Erikmarcemacie [facility] 1.2.840.114 350.1.13.10 4.2.7.2.[id number] [facility] 2021-09-01 00:00:00 2021-09-01 00:00:00 Patient Secure Msg Rayn Lu [facility] 1.2.840.114 350.1.13.10 4.2.7.2.[id number] [facility] 2021-08-31 10:00:00 2021-08-31 12:08:15 [facility] [id number] [facility] 2021-08-31 10:00:00 2021-08-31 12:08:15 Routine Visit Ryan Lu [facility] 1.114 350.1.13.10 4.2.7.2.[id number] [facility] 2021-08-31 11:30:00 2021-08-31 11:45:00 Sanitation Associate Visit Lab, Esequiel Lozada Inge [facility] GILBERTO?[facility] 1..114 350.1.13.10 4.2.7.2.[id number] [facility] 2021-08-26 08:00:00 2021-08-26 08:00:00 Outpatient R RYAN LU [facility] [id number] General acute hospital 2021-08-24 16:00:00 2021-08-24 16:17:28 Outpatient R RYAN LU [facility] [id number] General acute hospital 2021-08-24 16:00:00 2021-08-24 16:17:28 Routine Visit Ryan Lu [facility] 1.114 350.1.13.10 4.2.7.2.[id number] [facility] 2021-08-24 00:00:00 2021-08-24 00:00:00 Orders Only Doctor Unassigned, [place] [facility] 1.114 350.1.13.10 4.2.7.2.[id number] [facility] 2021-08-13 10:30:00 2021-08-13 11:23:10 Outpatient R FRAN ALEJANDRO NILSONFRAN VERNON [facility] [id number] [facility] 2021-08-13 10:30:00 2021-08-13 11:23:10 Routine Visit Fran Alejandro [facility] 1.2.840.114 350.1.13.10 4.2.7.2.[id number] [facility] 2021-08-02 15:15:00 2021-08-02 15:47:41 Outpatient MEME COBIAN [facility] [id number] [facility] 2021-08-02 15:15:00 2021-08-02 15:47:41 Sanitation Associate Visit Ultrasound, [facility] Jem LuMeme Florez [facility] HYDRODYNAMICS TEACHER [facility] MATERNAL & CHILD HEALTH [facility] 1.2.840.114 350.1.13.10 4.2.7.2.[id number] [facility] 2021-08-02 13:15:00 2021-08-02 13:31:18 Routine Visit Ryan Lu [facility] 1.2.840.114 350.1.13.10 4.2.7.2.[id number] [facility] 2021-08-02 00:00:00 2021-08-02 00:00:00 Patient Secure Msg Ryan Lu [facility] 1.2.840.114 350.1.13.10 4.2.7.2.[id number] [facility] 2021-07-27 00:00:00 2021-07-27 00:00:00 Patient Secure Msg Irma Allison [facility] 1.2.840.114 350.1.13.10 4.2.7.2.[id number] [facility] 2021-07-19 13:00:00 2021-07-19 13:30:54 Outpatient R RYAN LU [facility] [id number] General acute hospital 2021-07-19 13:00:00 2021-07-19 13:30:54 Routine Visit Ryan Lu [facility] 1.114 350.1.13.10 4.2.7.2.[id number] [facility] 2021-07-08 10:00:00 2021-07-08 10:00:00 Outpatient R RYAN LU [facility] [id number] General acute hospital 2021-06-30 12:26:00 2021-06-30 15:10:00 Outpatient P LAYLAKITTY HERNANDEZ [facility] [id number] [facility] 2021-06-30 12:26:00 2021-06-30 15:10:00 Hospital Encounter Ryan Lu Vivian [facility] 1.114 350.1.13.10 4.2.7.2.[id number] [facility] 2021-06-24 00:00:00 2021-06-24 00:00:00 Patient Secure Msg Aly Ryan [facility] 1.114 350.1.13.10 4.2.7.2.[id number] [facility] 2021-06-23 10:00:00 2021-06-23 10:00:00 Outpatient R [facility] [id number] [facility] 2021-06-23 08:20:00 2021-06-23 08:35:00 Sanitation Associate Visit Lab, Ang - Db Ryan Lu [facility] 1.84.114 350.1.13.10 4.2.7.2.[id number] [facility] 2021-06-23 08:20:00 2021-06-23 08:20:00 Outpatient R RYAN LU [facility] [id number] General acute hospital 2021-06-22 08:15:00 2021-06-22 08:15:00 Outpatient R RYAN LU [facility] [id number] General acute hospital 2021-06-22 00:00:00 2021-06-22 00:00:00 Patient Secure Msg Aly [facility] 1.2.840.114 350.1.13.10 4.2.7.2.[id number] [facility] 2021-06-22 00:00:00 2021-06-22 00:00:00 Letter (Out) Aly [facility] 1.2.840.114 350.1.13.10 4.2.7.2.[id number] [facility] 2021-06-22 00:00:00 2021-06-22 00:00:00 Telephone Aly Ryan [facility] 1.2.840.114 350.1.13.10 4.2.7.2.[id number] [facility] 2021-06-17 13:15:00 2021-06-17 13:59:40 Outpatient R RYAN LU [facility] [id number] General acute hospital 2021-06-17 13:15:00 2021-06-17 13:59:40 Routine Visit Aly Ryan [facility] 1.2.840.114 350.1.13.10 4.2.7.2.[id number] [facility] 2021-05-28 11:30:00 2021-05-28 11:30:00 Outpatient R JOHNNY DENNIS [facility] [id number] [facility] 2021-05-28 11:30:00 2021-05-28 11:30:00 Imm/Inj Visit Nurse, Misti Shields ImmunizatiJohnny Bello [facility] PROFESSIO NAL [facility]ILD[facility] 1.840.114 350.1.13.10 4.2.7.2.[id number] [facility] 2021-05-28 00:00:00 2021-05-28 00:00:00 Telephone Maggi Dunia [facility] 1.840.114 350.1.13.10 4.2.7.2.[id number] [facility] 2021-05-27 20:45:00 2021-05-27 20:45:00 Outpatient KONG ESPOSITO [facility] [id number] [facility] 2021-05-27 20:45:00 2021-05-27 20:45:00 Laboratory Only Only, Ang Db Test Evaristo [facility]?ANASTACIO [facility] 1.840.114 350.1.13.10 4.2.7.2.[id number] [facility] 2021-05-27 11:00:00 2021-05-27 11:00:00 Outpatient JOHNNY HEATON [facility] [id number] [facility] 2021-05-27 08:15:00 2021-05-27 08:15:00 Outpatient RYAN JANE [facility] [id number] [facility] 2021-05-25 09:30:00 2021-05-25 09:30:00 Routine Visit Bebe Georges [facility] 1.84.114 350.1.13.10 4.2.7.2.[id number] [facility] 2021-05-25 09:30:00 2021-05-25 08:57:46 Outpatient R BEBE GEORGES [facility] [id number] [facility] 2021-05-25 09:30:00 2021-05-25 08:57:46 Outpatient R BEBE GEORGES [facility] [id number] [facility] 2021-05-25 00:00:00 2021-05-25 00:00:00 Patient Secure Msg Georges Bebe [facility] 1.0.114 350.1.13.10 4.2.7.2.[id number] [facility] 2021-05-19 13:30:00 2021-05-19 14:30:00 Sanitation Associate Visit Ultrasound, Lucy Faust [facility] HYDRODYNAMICS TEACHER [facility] MATERNAL & CHILD HEALTH [facility] 1.84.114 350.1.13.10 4.2.7.2.[id number] [facility] 2021-05-19 13:30:00 2021-05-19 13:30:00 Outpatient P LUCY VAZ [facility] [id number] [facility] 2021-05-18 11:15:00 2021-05-18 11:15:00 Outpatient R JEM LUN [facility] [id number] General acute hospital 2021-05-12 19:30:00 2021-05-12 19:30:00 Outpatient R UNKNOWN, ATTENDING [facility] [id number] [facility] 2021-05-12 11:00:00 2021-05-12 11:00:00 Outpatient P [facility] [id number] [facility] 2021-05-11 00:00:00 2021-05-11 00:00:00 Patient Secure Ryan Cedillo [facility] 1.84.114 350.1.13.10 4.2.7.2.[id number] [facility] 2021-05-11 00:00:00 2021-05-11 00:00:00 Telephone Ryan Lu [facility] 1..114 350.1.13.10 4.2.7.2.[id number] [facility] 2021-05-10 11:15:00 2021-05-10 11:15:00 Outpatient R RYAN LU [facility] [id number] General acute hospital 2021-04-15 00:00:00 2021-04-15 00:00:00 Telephone Aly Ryan [facility] 1..114 350.1.13.10 4.2.7.2.[id number] [facility] 2021-04-12 14:30:00 2021-04-12 15:46:31 Outpatient R RYAN LU [facility] [id number] General acute hospital 2021-04-12 14:08:27 2021-04-12 15:46:31 Initial Visit Ryan Lu [facility] 1..114 350.1.13.10 4.2.7.2.[id number] [facility] 2021-04-08 00:00:00 2021-04-08 00:00:00 Orders Only Doctor Unassigned, [place] [facility] 1..114 350.1.13.10 4.2.7.2.[id number] [facility] 2021-04-05 00:00:00 2021-04-05 00:00:00 Telephone Paul Alonso [facility] JESE PAZ REPLACED BY [facility] 1..114 350.1.13.10 4.2.7.2.[id number] [facility] 2021-03-26 00:00:00 2021-03-26 00:00:00 Case Management Paul Alonso [facility] 1.2.840.114 350.1.13.10 4.2.7.2.[id number] [facility] 2021-03-26 00:00:00 2021-03-26 00:00:00 Orders Only Doctor Unassigned, [place] [facility] 1.2.840.114 350.1.13.10 4.2.7.2.[id number] [facility] 2021-03-22 00:00:00 2021-03-22 00:00:00 Telephone Paul Alonso [facility] 1.2.840.114 350.1.13.10 4.2.7.2.[id number] [facility] 2021-03-16 12:56:40 2021-03-16 13:37:38 Sanitation Associate Visit 2, Adc Lab Paul Alonso [facility] 1.2.840.114 350.1.13.10 4.2.7.2.[id number] [facility] 2021-03-16 13:00:00 2021-03-16 13:00:00 Outpatient R APUL ALONSO [facility] [id number] [facility] 2021-03-12 09:15:00 2021-03-12 09:15:00 Outpatient R [facility] [id number] [facility] 2021-03-11 10:00:00 2021-03-11 12:02:12 Outpatient R PAUL ALONSO [facility] [id number] [facility] 2021-03-11 09:52:44 2021-03-11 12:02:12 Initial Visit Paul Alonso [facility] 1.2.840.114 350.1.13.10 4.2.7.2.[id number] [facility] 2021-03-11 00:00:00 2021-03-11 00:00:00 Orders Only Doctor Unassigned, [place] [facility] 1.2.840.114 350.1.13.10 4.2.7.2.[id number] [facility] 2021-02-25 12:07:00 2021-02-25 13:06:00 Emergency Gilberto Corrine [facility] 1.2.840.114 350.1.13.10 4.2.7.2.[id number] [facility] 2021-02-25 12:07:00 2021-02-25 13:06:00 Emergency X GILBERTO AUGUSTA [facility] ERT [id number] [facility] 2021-02-25 00:00:00 2021-02-25 00:00:00 Orders Only Doctor Unassigned, [place] [facility] 1.2.840.114 350.1.13.10 4.2.7.2.[id number] [facility] 2021-02-12 16:49:00 2021-02-12 20:48:00 Emergency X PATRICIO BLAS [facility] ERT [id number] [facility] 2021-02-12 16:49:00 2021-02-12 20:48:00 Emergency Patricio Blas [facility] 1.2.840.114 350.1.13.10 4.2.7.2.[id number] [facility] 2021-02-12 00:00:00 2021-02-12 00:00:00 Orders Only Doctor Unassigned, [place] [facility] 1.2.840.114 350.1.13.10 4.2.7.2.[id number] [facility] 2020-08-06 11:45:00 2020-08-06 11:45:00 Outpatient [facility] [id number] [facility] 2019-11-11 00:00:00 2019-11-11 00:00:00 Letter (Out) Yon Pichardo [facility] HYDRODYNAMICS TEACHER [facility] & CHILD [facility] 1.840.114 350.1.13.10 4.2.7.2.[id number] [facility] 2019-10-02 10:00:00 2019-10-02 10:00:00 Outpatient R YON PICHARDO [facility] [id number] [facility] 2019-09-20 16:30:00 2019-09-20 16:30:00 Outpatient R DELVIS SHEA [facility] [id number] [facility] 2019-09-20 13:36:02 2019-09-20 13:51:02 Telemedici ne Visit Delvis Shea [facility] 1..114 350.1.13.10 4.2.7.2.[id number] [facility] 2019-09-11 07:35:20 2019-09-11 11:19:46 Telemedici ne Visit Yon Pichardo [facility] HYDRODYNAMICS TEACHER [facility] & CHILD [facility] 1.84.114 350.1.13.10 4.2.7.2.[id number] [facility] 2019-09-11 10:45:00 2019-09-11 10:45:00 Outpatient R YON PICHARDO [facility] [id number] [facility] 2019-09-02 00:00:00 2019-09-02 00:00:00 Telephone Yon Pichardo [facility] HYDRODYNAMICS TEACHER [facility] & CHILD [facility] 1.840.114 350.1.13.10 4.2.7.2.[id number] [facility] 2019-08-11 16:40:00 2019-08-11 16:40:00 Outpatient BEBE SANTOS [facility] [id number] [facility] Notes Date/Time Note Provider Source 2023-11-22 09:26:23 Chief Complaint Patient presents with Physical Fasting for labs. Needs medications refiled [facility]
--- NOTE | 2024-08-04 15:19 | EDPHYS ---
Physician Documentation [facility] Name: Quin De La Torre Age: 34 yrs Sex: Female : 1990 Arrival Date: 08/04/2024 Time: 14:46 Bed 20 Private MD: ED Physician Salas Silverio HPI: 08/04 15:11 This 34 yrs old Female presents to ER via Ambulatory with complaints of Ear Pain. rn 15:11 The patient presents with hearing loss, pain. The complaints affect the left ear. rn 15:12 Onset: The symptoms/episode began/occurred today. Modifying factors: The symptoms are rn alleviated by nothing, the symptoms are aggravated by nothing. Severity of symptoms: At their worst the symptoms were mild in the emergency department the symptoms are unchanged. The patient has not experienced similar symptoms in the past. Patient reports had ear infection 2 months ago, took antibiotics and symptoms resolved. Patient had pain today in left ear, then noted muffled hearing. Noticed small amount of blood in left ear with Q-tip but pain and muffled hearing began prior to insertion of Q-tip. No fever or chills.. Historical: - Allergies: 15:00 No Known Allergies; db - PMHx: 15:00 heart condition- patient is unaware of name; db - PSHx: 15:00 tubal ligation (co); db - Immunization history:: Adult Immunizations unknown. - Infectious Disease History:: Denies. - Social history:: Smoking status: Patient denies any tobacco usage or history of. - Family history:: not pertinent. - Hospitalizations: : No recent hospitalization is reported. ROS: 15:12 Constitutional: Negative for fever, chills, and weight loss, ENT: Positive for left ear rn pain with decreased hearing Neck: Negative for injury, pain, and swelling, Exam: 15:12 Constitutional: This is a well developed, well nourished patient who is awake, alert, rn and in no acute distress. ENT: Left ear canal normal without foreign body or drainage. There is mid TM perforation. No fluid behind it. Mild erythema of TM surrounding perforation Vital Signs: 15:00 BP 127 / 83; Pulse 86; Resp 16; Temp 98.1; Pulse Ox 97% ; Weight 89.36 kg; Height 5 ft. db 9 in. ; Pain 8/10; 15:00 Body Mass Index 29.09 (89.36 kg, 175.26 cm) db 15:00 Pain Scale: Adult db MDM: 15:04 Medical Screening Exam initiated rn 15:12 Differential diagnosis: otitis media, otitis externa, ruptured TM, acute otalgia, rn serotympanum. Data reviewed: vital signs, nurses notes, and as a result, I will discharge patient. Counseling: I had a detailed discussion with the patient and/or guardian regarding the historical points, exam findings, and any diagnostic results supporting the discharge/admit diagnosis, the need for outpatient follow up, to return to the emergency department if symptoms worsen or persist or if there are any questions or concerns that arise at home. Special discussion: I discussed with the patient/guardian in detail that at this point there is no indication for admission to the hospital. It is understood, however, that if the symptoms persist or worsen the patient needs to return immediately for re-evaluation. Based on the history and exam findings, there is no indication for further emergent testing or inpatient evaluation. I discussed with the patient/guardian the need to see the ENT specialist for further evaluation of the symptoms. ED course: Patient with TM perforation/rupture. Discussed cannot be submerged in water or inserting anything into the ear, will prescribe antibiotics and needs ENT follow-up.. Administered Medications: No medications were administered Disposition Summary: 08/04/24 15:19 Discharge Ordered Notes: Location: Home rn Problem: new rn Symptoms: are unchanged rn Condition: Stable rn Diagnosis - Central perforation of tympanic membrane, left ear rn Followup: rn - With: Private Physician - When: As needed - Reason: Recheck today's complaints, Re-evaluation by your physician Discharge Instructions: - Discharge Summary Sheet rn - Eardrum Rupture, Adult rn Forms: - Medication Reconciliation Form rn - Antibiotic earth burner - Prescription Opioid Use rn - Patient Portal Instructions rn - Leadership Thank You Letter rn Prescriptions: - Augmentin 875-125 mg Oral Tablet - take 1 tablet ORAL route every 12 hours for 10 days; 20 tablet; Refills: 0, rn Product Selection Permitted Signatures: Salas Silverio MD MD rn Benton, Danielle, RN RN db
--- NOTE | 2024-08-04 15:19 | ER ---
Nurse's Notes [facility] Name: Quin De La Torre Age: 34 yrs Sex: Female : 1990 Arrival Date: 08/04/2024 Time: 14:46 Bed 20 Private MD: Diagnosis: Central perforation of tympanic membrane, left ear Presentation: 08/04 15:00 Chief complaint: Patient states: LEFT EAR PAIN STARTED TODAY AFTER HEARING A POP. PUT A db Q-TIP IN EAR AND SAW BLOOD ON END OF TIP. "FEELS LIKE MAY HAVE RUPTURED". Coronavirus screen: Client denies travel out of the [place] in the last 14 days. At this time, the client does not indicate any symptoms associated with coronavirus-19. Ebola Screen: Patient negative for fever greater than or equal to 101.5 degrees Fahrenheit, and additional compatible Ebola Virus Disease symptoms Patient denies exposure to infectious person. Patient denies travel to an Ebola-affected area in the 21 days before illness onset. No symptoms or risks identified at this time. Initial Sepsis Screen: Does the patient meet any 2 criteria? No. Patient's initial sepsis screen is negative. Does the patient have a suspected source of infection? No. Patient's initial sepsis screen is negative. Risk Assessment: Do you want to hurt yourself or someone else? Patient reports no desire to harm self or others. Onset of symptoms was August 04, 2024. 15:00 Method Of Arrival: Ambulatory db 15:00 Acuity: DORI 4 db Triage Assessment: 15:00 General: Appears in no apparent distress. comfortable, Behavior is calm, cooperative. db Pain: Complains of pain in left ear. EENT: Reports pain in left ear. Neuro: Level of Consciousness is awake, alert, obeys commands, Oriented to person, place, time, situation. Respiratory: Airway is patent Respiratory effort is even, unlabored, Respiratory pattern is regular, symmetrical. Historical: - Allergies: 15:00 No Known Allergies; db - PMHx: 15:00 heart condition- patient is unaware of name; db - PSHx: 15:00 tubal ligation (co); db - Immunization history:: Adult Immunizations unknown. - Infectious Disease History:: Denies. - Social history:: Smoking status: Patient denies any tobacco usage or history of. - Family history:: not pertinent. - Hospitalizations: : No recent hospitalization is reported. Screenin:33 [facility] ED Fall Risk Assessment (Adult) History of falling in the last 3 months, ld1 including since admission No falls in past 3 months (0 pts) Confusion or Disorientation No (0 pts) Intoxicated or Sedated No (0 pts) Impaired Gait No (0 pts) Mobility Assist Device Used No (0 pt) Altered Elimination No (0 pt) Score/Fall Risk Level 0 - 2 = Low Risk Oriented to surroundings, Hourly rounding (assess needs \\T\\ fall precautionary measures) done. Abuse screen: Denies threats or abuse. Denies injuries from another. Nutritional screening: No deficits noted. Tuberculosis screening: No symptoms or risk factors identified. Assessment: 15:33 Reassessment:. General: Appears in no apparent distress. comfortable, Behavior is calm, ld1 cooperative, appropriate for age. Pain: Complains of pain in left ear Pain does not radiate. Pain currently is 8 out of 10 on a pain scale. Quality of pain is described as throbbing. Neuro: Glaser Agitation-Sedation Scale (RASS): Level of Consciousness is awake, alert, obeys commands, Oriented to person, place, time, situation. Cardiovascular: Capillary refill < 3 seconds Patient's skin is warm and dry. Respiratory: Airway is patent Respiratory effort is even, unlabored. GI: Abdomen is flat, non-distended. : No signs and/or symptoms were reported regarding the genitourinary system. EENT: No signs and/or symptoms were reported regarding the EENT system. Derm: No signs and/or symptoms reported regarding the dermatologic system. Vital Signs: 15:00 BP 127 / 83; Pulse 86; Resp 16; Temp 98.1; Pulse Ox 97% ; Weight 89.36 kg; Height 5 ft. db 9 in. ; Pain 8/10; 15:00 Body Mass Index 29.09 (89.36 kg, 175.26 cm) db 15:00 Pain Scale: Adult db ED Course: 14:49 Patient arrived in ED. al6 15:00 Arm band placed on Patient placed in an exam room. db 15:04 Salas Silverio MD is Attending Physician. rn 15:08 Triage completed. db 15:33 Cindy Howard RN is Primary Nurse. ld1 15:33 Patient has correct armband on for positive identification. Placed in gown. Bed in low ld1 position. Call light in reach. Side rails up X2. Pulse ox on. NIBP on. Door closed. Noise minimized. Warm blanket given. 15:33 No provider procedures requiring assistance completed. Patient did not have IV access ld1 during this emergency room visit. Administered Medications: No medications were administered Medication: 15:33 VIS not applicable for this client. ld1 Outcome: 15:19 Discharge ordered by . rn 15:37 Discharged to home ambulatory, ld1 15:37 Condition: stable 15:37 Discharge instructions given to patient, Instructed on discharge instructions, follow up and referral plans. medication usage, Demonstrated understanding of instructions, follow-up care, medications, Prescriptions given X 1, 15:37 Patient left the ED. ld1 Signatures: Salas Silverio MD MD rn Sims, Lauren, RN RN ld1 Jazmin Cortes RN RN Edie Bernardo6
[2024-08-04 15:53] VITALS: BP 127/83; TEMP 98.1; O2SAT 97
== END 2024-08-04 15:37 | disposition home or self-care (01) ==
LOC: ER 14:46
DX: H72.02 Central perforation of tympanic membrane, left ear (principal)
CPT/HCPCS: 99283